=== PATIENT | female | born 1935 | race Caucasian/White ===

== ENCOUNTER 2016-11-27 08:00 | Outpatient (CLI) | payer MEDICARE | END 2016-11-27 08:01 | disposition home or self-care (01) | DX: B00.1 Herpesviral vesicular dermatitis (principal); I10 Essential (primary) hypertension; E78.5 Hyperlipidemia, unspecified ==

== ENCOUNTER 2017-07-29 08:00 | Outpatient (CLI) | payer MEDICARE ==
[2017-07-29 13:04] LABS: BASOPHILS # (AUTO) 0.1 10^3/uL (0.0-0.1); BASOPHILS % (AUTO) 1.2 %; EOSINOPHILS # (AUTO) 0.2 10^3/uL (0.0-0.7); EOSINOPHILS % (AUTO) 2.1 %; HGB - HEMOGLOBIN 10.2 g/dL (12.0-16.0); LYMPHOCYTES # (AUTO) 2.9 10^3/uL (1.5-3.5); LYMPHOCYTES % (AUTO) 33.9 %; MEAN CORPUSCULAR HEMOGLOBIN 31.1 pg (27.0-31.0); MEAN CORPUSCULAR HGB CONC 35.4 g/dL (32.0-36.0); MEAN PLATELET VOLUME 8.6 fL (7.9-10.8); MONOCYTES # (AUTO) 0.6 10^3/uL (0.0-1.0); MONOCYTES % (AUTO) 7.1 %; NEUTROPHILS # (AUTO) 4.7 10^3/uL (1.5-6.6); NEUTROPHILS % (AUTO) 55.7 %; PLT - PLATELET COUNT 312 10^3/uL (130-450); RED BLOOD COUNT 3.27 10^6/uL (4.20-5.40); RED CELL DISTRIBUTION WIDTH 14.2 % (12.0-15.0); WHITE BLOOD COUNT 8.5 x10^3/uL (4.8-10.8)
[2017-07-29 13:27] LABS: ALBUMIN 3.8 g/dL (3.2-5.5); ALBUMIN/GLOBULIN RATIO 1.2 (1.0-2.2); BILIRUBIN,TOTAL 0.3 mg/dL (0.2-1.0); CALCIUM 8.7 mg/dL (8.5-10.3); CREATININE 1.4 mg/dL (0.4-1.0); TOTAL PROTEIN 7.1 g/dL (6.7-8.2)
== END 2017-07-29 08:01 | disposition home or self-care (01) ==
LOC: LAB.WCP 08:00
PROVIDERS: ATTEND Family Medicine
DX: Z00.00 Encounter for general adult medical examination without abnormal findings (principal); I48.92 Unspecified atrial flutter; E78.5 Hyperlipidemia, unspecified; N18.3 Chronic kidney disease, stage 3 (moderate); I12.9 Hypertensive chronic kidney disease with stage 1 through stage 4 chronic kidney disease, or unspecified chronic kidney disease
CPT/HCPCS: 36415; 80053; 85025

== ENCOUNTER 2017-07-31 08:00 | Outpatient (CLI) | payer MEDICARE ==
[2017-07-31 19:14] LABS: % IRON SATURATION 15 % (20-50); IRON 48 ug/dL (28-170); TOTAL IRON BINDING CAPACITY 316 ug/dL (250-450); TRANSFERRIN 226 mg/dL (192-382)
[2017-07-31 19:24] LABS: FERRITIN 53.4 ng/mL (11.0-306.8)
== END 2017-07-31 08:01 | disposition home or self-care (01) ==
LOC: LAB.WCP 08:00
PROVIDERS: ATTEND Family Medicine
DX: D64.9 Anemia, unspecified (principal)
CPT/HCPCS: 36415; 82607; 82728; 83540; 84466

== ENCOUNTER 2018-02-12 08:00 | Outpatient (CLI) | payer MEDICARE ==
[2018-02-13 13:43] LABS: HEPATITIS A IGM NON-REACTIVE (NON-REACTIVE); HEPATITIS B CORE ANTIBODY IGM NON-REACTIVE (NON-REACTIVE); HEPATITIS B SURFACE ANTIGEN NON-REACTIVE (NON-REACTIVE); HEPATITIS C ANTIBODY NON-REACTIVE (NON-REACTIVE)
== END 2018-02-12 08:01 | disposition home or self-care (01) ==
LOC: LAB.WCP 08:00
PROVIDERS: ATTEND Family Medicine
DX: R94.5 Abnormal results of liver function studies (principal)
CPT/HCPCS: 36415; 80074

== ENCOUNTER 2018-03-17 14:39 | Outpatient (CLI) | payer MEDICARE ==
[2018-03-17 19:02] LABS: BASOPHILS # (AUTO) 0.1 10^3/uL (0.0-0.1); BASOPHILS % (AUTO) 0.9 %; EOSINOPHILS # (AUTO) 0.2 10^3/uL (0.0-0.7); EOSINOPHILS % (AUTO) 2.6 %; HGB - HEMOGLOBIN 11.1 g/dL (12.0-16.0); LYMPHOCYTES % (AUTO) 34.3 %; MEAN CORPUSCULAR HEMOGLOBIN 32.7 pg (27.0-31.0); MEAN CORPUSCULAR HGB CONC 34.2 g/dL (32.0-36.0); MEAN CORPUSCULAR VOLUME 95.6 fL (81.0-99.0); MEAN PLATELET VOLUME 9.2 fL (7.9-10.8); MONOCYTES # (AUTO) 0.5 10^3/uL (0.0-1.0); MONOCYTES % (AUTO) 6.1 %; NEUTROPHILS # (AUTO) 4.8 10^3/uL (1.5-6.6); NEUTROPHILS % (AUTO) 56.1 %; PLT - PLATELET COUNT 322 10^3/uL (130-450); RED BLOOD COUNT 3.39 10^6/uL (4.20-5.40); RED CELL DISTRIBUTION WIDTH 13.9 % (12.0-15.0); WHITE BLOOD COUNT 8.6 x10^3/uL (4.8-10.8)
[2018-03-17 19:39] LABS: ALBUMIN 4.2 g/dL (3.2-5.5); ALBUMIN/GLOBULIN RATIO 1.4 (1.0-2.2); BILIRUBIN,TOTAL 0.4 mg/dL (0.2-1.0); CREATININE 1.2 mg/dL (0.4-1.0); TOTAL PROTEIN 7.1 g/dL (6.7-8.2)
== END 2018-03-17 14:40 | disposition home or self-care (01) ==
LOC: LAB.WCP 14:39
PROVIDERS: ATTEND Internal Medicine Gastroenterology
DX: D50.9 Iron deficiency anemia, unspecified (principal)
CPT/HCPCS: 36415; 80053; 83540; 84466; 85025

== ENCOUNTER 2018-05-05 14:05 | Outpatient (CLI) | payer MEDICARE ==
[2018-05-05 18:52] LABS: INR 2.6 (0.8-1.2); PT - PROTHROMBIN TIME 29.6 secs (9.9-12.6)
== END 2018-05-05 14:06 | disposition home or self-care (01) ==
LOC: LAB.WCP 14:05
PROVIDERS: ATTEND Family Medicine
DX: I48.91 Unspecified atrial fibrillation (principal); Z79.01 Long term (current) use of anticoagulants
CPT/HCPCS: 36415; 85610

== ENCOUNTER 2018-06-04 11:58 | Outpatient (CLI) | payer MEDICARE ==
[2018-06-04 12:21] LABS: BASOPHILS # (AUTO) 0.2 10^3/uL (0.0-0.1); BASOPHILS % (AUTO) 1.9 %; EOSINOPHILS # (AUTO) 0.2 10^3/uL (0.0-0.7); EOSINOPHILS % (AUTO) 2.7 %; HGB - HEMOGLOBIN 11.6 g/dL (12.0-16.0); LYMPHOCYTES # (AUTO) 2.7 10^3/uL (1.5-3.5); LYMPHOCYTES % (AUTO) 33.3 %; MEAN CORPUSCULAR HEMOGLOBIN 31.6 pg (27.0-31.0); MEAN CORPUSCULAR HGB CONC 33.4 g/dL (32.0-36.0); MEAN CORPUSCULAR VOLUME 94.6 fL (81.0-99.0); MEAN PLATELET VOLUME 8.1 fL (7.9-10.8); MONOCYTES # (AUTO) 0.5 10^3/uL (0.0-1.0); MONOCYTES % (AUTO) 5.6 %; NEUTROPHILS # (AUTO) 4.6 10^3/uL (1.5-6.6); NEUTROPHILS % (AUTO) 56.5 %; PLT - PLATELET COUNT 371 10^3/uL (130-450); RED BLOOD COUNT 3.68 10^6/uL (4.20-5.40); RED CELL DISTRIBUTION WIDTH 14.5 % (12.0-15.0); WHITE BLOOD COUNT 8.1 x10^3/uL (4.8-10.8)
[2018-06-04 12:33] LABS: ALBUMIN 4.4 g/dL (3.2-5.5); ALBUMIN/GLOBULIN RATIO 1.3 (1.0-2.2); BILIRUBIN,TOTAL 0.6 mg/dL (0.2-1.0); CALCIUM 9.1 mg/dL (8.5-10.3); CREATININE 1.2 mg/dL (0.4-1.0); TOTAL PROTEIN 7.9 g/dL (6.7-8.2)
[2018-06-04] MEDS ORDERED: IOVERSOL 320 100 ML VIAL IVP ONE ×2 (13:06→16:06)
[2018-06-04] MEDS ORDERED: IOVERSOL 320 50 ML VIAL ONE (13:06)
--- NOTE | 2018-06-04 15:52 | CT Report ---
Reason: ANEMIA,IRON DEFICIENCY Procedure Date: 06/04/2018 Accession Number: [id number] / [id number] Procedure: CT - Abdomen/Pelvis W/ CPT Code: FULL RESULT: EXAM: CT ABDOMEN AND PELVIS EXAM DATE: 06/04/2018 02:36 PM. CLINICAL HISTORY: Anemia, iron deficiency. COMPARISONS: None. TECHNIQUE: Routine helical CT imaging was performed through the abdomen and pelvis. IV contrast: 80 mL Optiray 320. Enteric contrast: Yes. Reconstructions: Coronal and sagittal. In accordance with CT protocol optimization, one or more of the following dose reduction techniques were utilized for this exam: automated exposure control, adjustment of mA and/or KV based on patient size, or use of iterative reconstructive technique. FINDINGS: Lung Bases: Dependent changes. Liver: Sub-5 mm right hepatic lobe hypodensity too small to characterize. No suspicious masses. Gallbladder/Bile Ducts: Unremarkable. Spleen: Normal. Pancreas: Normal. Adrenal Glands: Normal. Kidneys: Hypodensities which are too small to characterize. No suspicious masses and no hydronephrosis. Peritoneal Cavity/Bowel: Diverticulosis and redundant sigmoid colon. No free fluid, free air or adenopathy. No masses or acute inflammatory process. Pelvic Organs: Normal. The bladder and visualized pelvic organs are within normal limits. Vasculature: Marked atherosclerotic disease without intrarenal aneurysm of the aorta. Bones: No aggressive osseous lesion. Other: None. IMPRESSION: No suspicious mass or lymphadenopathy is detected. RADIA
[2018-06-04] MEDS ORDERED: IOVERSOL 320 50 ML VIAL PO ONE (16:06)
== END 2018-06-04 11:59 | disposition home or self-care (01) ==
LOC: LAB 11:58 → DI 11:59
PROVIDERS: ATTEND Internal Medicine Gastroenterology
DX: D50.9 Iron deficiency anemia, unspecified (principal); R94.5 Abnormal results of liver function studies; N18.3 Chronic kidney disease, stage 3 (moderate)
CPT/HCPCS: 36415; 74177; 80053; 85025; Q9967

== ENCOUNTER 2018-09-21 08:07 | Outpatient (CLI) | payer MEDICARE ==
[2018-09-21 13:28] LABS: BASOPHILS # (AUTO) 0.1 10^3/uL (0.0-0.1); BASOPHILS % (AUTO) 0.8 %; EOSINOPHILS # (AUTO) 0.1 10^3/uL (0.0-0.7); EOSINOPHILS % (AUTO) 1.6 %; HGB - HEMOGLOBIN 11.5 g/dL (12.0-16.0); LYMPHOCYTES # (AUTO) 2.5 10^3/uL (1.5-3.5); LYMPHOCYTES % (AUTO) 30.1 %; MEAN CORPUSCULAR HEMOGLOBIN 32.2 pg (27.0-31.0); MEAN CORPUSCULAR HGB CONC 33.8 g/dL (32.0-36.0); MEAN CORPUSCULAR VOLUME 95.1 fL (81.0-99.0); MEAN PLATELET VOLUME 8.6 fL (7.9-10.8); MONOCYTES # (AUTO) 0.4 10^3/uL (0.0-1.0); NEUTROPHILS # (AUTO) 5.2 10^3/uL (1.5-6.6); NEUTROPHILS % (AUTO) 62.5 %; PLT - PLATELET COUNT 358 10^3/uL (130-450); RED BLOOD COUNT 3.56 10^6/uL (4.20-5.40); RED CELL DISTRIBUTION WIDTH 13.8 % (12.0-15.0); WHITE BLOOD COUNT 8.3 x10^3/uL (4.8-10.8)
[2018-09-21 15:41] LABS: ALBUMIN 4.2 g/dL (3.2-5.5); ALBUMIN/GLOBULIN RATIO 1.4 (1.0-2.2); ALKALINE PHOSPHATASE 92 IU/L (42-121); ALT ALANINE AMINOTRANSFERASE 29 IU/L (10-60); AST ASPARTATE AMINOTRANSFERASE 37 IU/L (10-42); BILIRUBIN,TOTAL 0.4 mg/dL (0.2-1.0); BUN - BLOOD UREA NITROGEN 20 mg/dL (6-20); CARBON DIOXIDE - CO2 24 mmol/L (21-32); CHLORIDE 106 mmol/L (101-111); CHOL/HDL RATIO 4.3 (<4.4); CHOLESTEROL 201 mg/dL; CREATININE 1.1 mg/dL (0.4-1.0); GFR - MDRD 47 (>89); GLUCOSE 99 mg/dL (70-100); HDL CHOLESTEROL 47 mg/dL; LDL CHOLESTEROL,CALCULATED 90 mg/dL; LDL/HDL RATIO 1.9 (<4.4); SODIUM 142 mmol/L (135-145); TOTAL PROTEIN 7.2 g/dL (6.7-8.2); VLDL CHOLESTEROL 64 mg/dL
== END 2018-09-21 08:08 | disposition home or self-care (01) ==
LOC: LAB.WCP 08:07
PROVIDERS: ATTEND Family Medicine
DX: B35.1 Tinea unguium (principal); D50.9 Iron deficiency anemia, unspecified; I12.9 Hypertensive chronic kidney disease with stage 1 through stage 4 chronic kidney disease, or unspecified chronic kidney disease; N18.3 Chronic kidney disease, stage 3 (moderate); I48.91 Unspecified atrial fibrillation; Z79.01 Long term (current) use of anticoagulants
CPT/HCPCS: 36415; 80053; 80061; 83721; 84443; 85025

== ENCOUNTER 2018-09-22 08:00 | Outpatient (CLI) | payer MEDICARE | END 2018-09-22 23:59 | disposition home or self-care (01) | LOC: LAB.WCP 08:00 | PROVIDERS: ATTEND Family Medicine | DX: I48.92 Unspecified atrial flutter (principal); Z79.01 Long term (current) use of anticoagulants ==

== ENCOUNTER 2018-10-07 13:21 | Outpatient (CLI) | payer MEDICARE | END 2018-10-07 13:22 | disposition home or self-care (01) | LOC: DI.N 13:21 | PROVIDERS: ATTEND Family Medicine | DX: Z12.31 Encounter for screening mammogram for malignant neoplasm of breast (principal) | CPT/HCPCS: 77067 ==

== ENCOUNTER 2018-10-20 08:00 | Outpatient (CLI) | payer MEDICARE | END 2018-10-20 23:59 | disposition home or self-care (01) | LOC: LAB.WCP 08:00 | PROVIDERS: ATTEND Family Medicine | DX: N18.3 Chronic kidney disease, stage 3 (moderate) (principal); I48.91 Unspecified atrial fibrillation; Z79.01 Long term (current) use of anticoagulants | CPT/HCPCS: 81025 ==

== ENCOUNTER 2018-11-17 08:00 | Outpatient (CLI) | payer MEDICARE | END 2018-11-17 23:59 | disposition home or self-care (01) | LOC: LAB.WCP 08:00 | PROVIDERS: ATTEND Family Medicine | DX: I48.92 Unspecified atrial flutter (principal); Z79.01 Long term (current) use of anticoagulants ==

== ENCOUNTER 2019-01-10 08:00 | Outpatient (CLI) | payer MEDICARE | END 2019-01-10 08:01 | disposition home or self-care (01) | LOC: LAB.WCP 08:00 | PROVIDERS: ATTEND Family Medicine | DX: I48.92 Unspecified atrial flutter (principal); Z79.01 Long term (current) use of anticoagulants ==

== ENCOUNTER 2019-02-07 08:00 | Outpatient (CLI) | payer MEDICARE | END 2019-02-07 23:59 | disposition home or self-care (01) | LOC: LAB.WCP 08:00 | PROVIDERS: ATTEND Physician Assistant Medical | DX: I48.91 Unspecified atrial fibrillation (principal); Z79.01 Long term (current) use of anticoagulants ==

== ENCOUNTER 2019-02-16 08:00 | Outpatient (CLI) | payer MEDICARE ==
[2019-02-16 18:44] LABS: CALCIUM 9.2 mg/dL (8.5-10.3); CREATININE 1.6 mg/dL (0.4-1.0)
== END 2019-02-16 23:59 | disposition home or self-care (01) ==
LOC: LAB.WCP 08:00
PROVIDERS: ATTEND Internal Medicine Cardiovascular Disease
DX: I10 Essential (primary) hypertension (principal)
CPT/HCPCS: 36415; 80048

== ENCOUNTER 2019-03-09 08:00 | Outpatient (CLI) | payer MEDICARE | END 2019-03-09 08:01 | disposition home or self-care (01) | LOC: LAB.WCP 08:00 | PROVIDERS: ATTEND Family Medicine | DX: I48.92 Unspecified atrial flutter (principal); Z79.01 Long term (current) use of anticoagulants ==

== ENCOUNTER 2019-03-31 13:09 | Outpatient (CLI) | payer MEDICARE ==
[2019-03-31 19:07] LABS: CALCIUM 9.2 mg/dL (8.5-10.3); CREATININE 1.6 mg/dL (0.4-1.0)
== END 2019-03-31 23:59 | disposition home or self-care (01) ==
LOC: LAB.WCP 13:09
PROVIDERS: ATTEND Family Medicine
DX: N18.3 Chronic kidney disease, stage 3 (moderate) (principal)
CPT/HCPCS: 36415; 80048

== ENCOUNTER 2019-04-05 08:00 | Outpatient (CLI) | payer MEDICARE | END 2019-04-05 23:59 | disposition home or self-care (01) | LOC: LAB.WCP 08:00 | PROVIDERS: ATTEND Family Medicine | DX: Z79.01 Long term (current) use of anticoagulants (principal); I48.92 Unspecified atrial flutter ==

== ENCOUNTER 2019-05-03 08:00 | Outpatient (CLI) | payer MEDICARE | END 2019-05-03 23:59 | disposition home or self-care (01) | LOC: LAB.WCP 08:00 | PROVIDERS: ATTEND Family Medicine | DX: Z79.01 Long term (current) use of anticoagulants (principal); I48.91 Unspecified atrial fibrillation ==

== ENCOUNTER 2019-05-31 08:00 | Outpatient (CLI) | payer MEDICARE | END 2019-05-31 23:59 | disposition home or self-care (01) | LOC: LAB.WCP 08:00 | PROVIDERS: ATTEND Family Medicine | DX: Z79.01 Long term (current) use of anticoagulants (principal); I48.92 Unspecified atrial flutter ==

== ENCOUNTER 2020-09-19 21:12 | Outpatient (CLI) | payer MEDICARE | END 2020-09-19 21:13 | disposition EMS.NT | LOC: EMS 21:12 | DX: Z48.01 Encounter for change or removal of surgical wound dressing (principal) ==

== ENCOUNTER 2021-03-26 06:43 | Outpatient (CLI) | payer MEDICARE ==
--- NOTE | 2021-03-26 08:28 | Ultrasound Report ---
PROCEDURE: Abdomen Limited INDICATIONS: ABNORMAL LFTS TECHNIQUE: Real-time scanning was performed of the abdominal and retroperitoneal organs, with image documentatio n. COMPARISON: CT abdomen and pelvis dated 06/04/2018. FINDINGS: Liver: The liver demonstrates diffusely increased echotexture without focal abnormalities which is c onsistent with chronic hepatocellular disease/hepatic steatosis. Gallbladder: Gallbladder is mildly contracted. No wall thickening. No pericholecystic fluid. No galls tones. Negative sonographic Crandall's. Biliary ducts: Intrahepatic bile ducts are non-dilated. Extrahepatic bile duct caliber measures 5 m m. Normal is 6-7 mm or less in diameter, or 10 mm or less post-cholecystectomy. Pancreas: There is a 0.9 x 0.9 x 0.7 cm pancreatic head cyst. This was not definitively seen on shireen rison CT. Remainder of the visualized portions of the pancreas are sonographically normal. Kidneys: Right kidney is normal in size and echotexture. Right kidney measures 7.6 cm long. No hydro nephrosis or nephrolithiasis. No solid masses. IMPRESSION: 1. Diffusely coarse/echogenic liver parenchyma without focal intrahepatic mass lesions likely related to hepatic steatosis or sequela of chronic hepatocellular disease. Findings may explain patient's ab normal LFTs. 2. A 0.9 cm pancreatic head cyst which is not visualized on comparison CT. Recommend further characte rization with dedicated CT or MRI of the abdomen using pancreatic mass protocol. Reviewed by: Zeus Tomas MD on 03/26/2021 8:27 AM PDT Approved by: Zeus Tomas MD on 03/26/2021 8:27 AM PDT Station ID: [id number]
== END 2021-03-26 06:44 | disposition home or self-care (01) ==
LOC: DI 06:43
PROVIDERS: ATTEND Internal Medicine
DX: R74.8 Abnormal levels of other serum enzymes (principal); R93.2 Abnormal findings on diagnostic imaging of liver and biliary tract; K86.2 Cyst of pancreas

== ENCOUNTER 2021-04-15 11:52 | Outpatient (CLI) | payer MEDICARE ==
[2021-04-15 12:40] LABS: CREATININE 1.6 mg/dL (0.4-1.0)
[2021-04-15] MEDS ORDERED: IOVERSOL 320 100 ML VIAL IVP ONE ×2 (13:13→20:04)
--- NOTE | 2021-04-15 17:14 | CT Report ---
PROCEDURE: ABDOMEN W/WO INDICATIONS: ABN US, pancreatic head cyst CONTRAST: IV CONTRAST: Optiray 320 ml: 70 PO CONTRAST: *NO PO CONTRAST TECHNIQUE: Noncontrast 5 mm thick sections acquired from the diaphragms to the symphysis. 5 mm coronal and sagi ttal reformats were then performed. For radiation dose reduction, the following was used: automated exposure control, adjustment of mA and/or kV according to patient size. COMPARISON: Correlation made to recent ultrasound 03/26/[address] abdomen pelvis 06/04/2018 FINDINGS: Image quality: Excellent. Lung bases: Gravitational changes present at both lung bases. The heart is mildly enlarged. Tiny hiat al hernia. Moderate mitral annular calcification. Moderate descending aortic calcification. Pancreas: Pancreas is normal in size and morphology. There is a cystic mass measuring 0.8 x 0.8 x 0. 7 cm in the pancreatic neck with a possible connection or at least close association to the nondilate d main pancreatic duct. There is slight internal attenuation but no definite enhancing component, nod ule, or calcification. There is no atrophy of the distal pancreas. No other cystic masses are identif ied. Solid organs: Subcentimeter hypodensity in posterior segment VII of the liver. Coarse calcification in segment VIII measuring 5 mm. No arterially enhancing mass lesion. Normal liver size and smooth con tour. Normal liver size and spleen size.. Gallbladder is normal. Biliary system is non dilated. No adrenal nodules.. Kidneys are normal in size and enhancement. No hydronephrosis or nephrolithiasis. Peritoneum and bowel: Unenhanced bowel loops are normal in caliber and wall thickness. Occasional si gmoid diverticulosis. No free fluid or air. Nodes and vessels: No retroperitoneal or mesenteric adenopathy by size criteria. Aorta and inferior vena cava are normal in size. Moderate abdominal aortic calcification. Miscellaneous: No ventral hernias. The uterus is surgically absent. The urinary bladder is partiall y filled and demonstrates normal wall thickness. No pelvic masses or adenopathy. Bones: No suspicious bony lesions. No vertebral body compression fractures. There are focal degenerative disc and endplate changes at the L1-2 level. IMPRESSION: 1. 0.8 cm cystic pancreatic neck mass with possible connection to the pancreatic duct. Differential d iagnosis includes a sidebranch IPMN, tiny benign cystic neoplasm, less likely pseudocyst and much les s likely malignant neoplasm. 6 month follow-up CT is recommended to assess for any size change or dev elopment of suspicious features. 2. Atherosclerotic calcification., Reviewed by: Shi Gupta MD on 04/15/2021 5:13 PM PDT Approved by: Shi Gupta MD on 04/15/2021 5:13 PM PDT Station ID: [id number]
== END 2021-04-15 11:53 | disposition home or self-care (01) ==
LOC: LAB 11:52 → DI 11:53
PROVIDERS: ATTEND Internal Medicine
DX: K86.9 Disease of pancreas, unspecified (principal); Z79.899 Other long term (current) drug therapy; I70.0 Atherosclerosis of aorta
CPT/HCPCS: 36415; 74170; 82565; Q9967

== ENCOUNTER 2021-10-05 09:48 | Outpatient (CLI) | payer MEDICARE ==
[2021-10-05] MEDS ORDERED: IOVERSOL 320 100 ML VIAL IVP ONE ×2 (10:03→10:53)
[2021-10-05 10:18] LABS: CREATININE 1.5 mg/dL (0.4-1.0)
--- NOTE | 2021-10-05 12:07 | CT Report ---
PROCEDURE: ABDOMEN W/WO INDICATIONS: MASS OF PANCREATIC NECK CONTRAST: IV CONTRAST: Optiray 320 ml: 100 PO CONTRAST: *NO PO CONTRAST TECHNIQUE: 4 phase scanning was performed. After the administration of intravenous contrast, 5 mm thick section s acquired from the diaphragm to the symphysis. 5 mm coronal and sagittal reformats were acquired. For radiation dose reduction, the following was used: automated exposure control, adjustment of mA a nd/or kV according to patient size. COMPARISON: 06/04/2018, 04/15/2021 FINDINGS: Image quality: Excellent. Lung bases: Minimal dependent atelectasis can be seen. Heart size is normal. Liver: The liver demonstrates normal size and demonstrates no focal lesions. Mild diffuse fatty live r infiltration can be seen. Other solid organs: Along the posterior neck of the pancreas, there is again seen a hypoechoic focus , as on series 3 image 37 measuring 8 mm. No new masses are seen. No pancreatic ductal dilatation is seen. Gallbladder demonstrates no significant CT abnormality Biliary system is non dilated. Spleen is nor mal in size and enhancement. No adrenal nodules. Both kidneys demonstrate normal size and enhanceme nt, without hydronephrosis or nephrolithiasis. Nodes and vessels: No retroperitoneal or mesenteric adenopathy by size criteria. Aorta and inferior vena cava are normal in size. Dense atherosclerotic calcification is seen. Bowel and peritoneum: Unenhanced bowel loops are normal in caliber. No free fluid or air. Bones: Mild levoconvex scoliotic curvature is seen. Focal degenerative change is seen involving the L2 level. Milder degenerative changes are seen elsewhere. No suspicious bony lesions. No vertebra l body compression fractures. Miscellaneous: No ventral hernias. IMPRESSION: 8 mm focus seen along the neck of the gallbladder, which is similar to the prior examina tion. This may be related to a sidebranch IPMN. Please consider a follow-up study in one year for further evaluation. Incidental note is made of: Fatty liver infiltration Levoconvex scoliotic curvature Focal L1-L2 degenerative change Dense atherosclerotic calcification Reviewed by: Roscoe Mcclain MD on 10/05/2021 11:05 AM BASILIO Approved by: Roscoe Mcclain MD on 10/05/2021 11:05 AM BASILIO Station ID: [id number]
== END 2021-10-05 09:49 | disposition home or self-care (01) ==
LOC: LAB 09:48
PROVIDERS: ATTEND Internal Medicine
DX: Z79.899 Other long term (current) drug therapy (principal); R93.2 Abnormal findings on diagnostic imaging of liver and biliary tract
CPT/HCPCS: 36415; 74170; 82565; Q9967

== ENCOUNTER 2021-10-25 15:35 | Outpatient (CLI) | payer MEDICARE | END 2021-10-25 15:36 | disposition home or self-care (01) | LOC: LAB.N 15:35 | PROVIDERS: ATTEND Internal Medicine | DX: Z79.01 Long term (current) use of anticoagulants (principal) | CPT/HCPCS: 36415; 85610 ==

== ENCOUNTER 2022-05-12 14:36 | Outpatient (CLI) | payer MEDICARE | END 2022-05-12 14:37 | disposition home or self-care (01) | LOC: LAB 14:36 | PROVIDERS: ATTEND Internal Medicine | DX: I48.91 Unspecified atrial fibrillation (principal) | CPT/HCPCS: 36416; 85610 ==

== ENCOUNTER 2022-07-15 10:28 | Outpatient (CLI) | payer MEDICARE ==
[2022-07-15 18:01] LABS: BASOPHILS # (AUTO) 0.1 10^3/uL (0.0-0.1); BASOPHILS % (AUTO) 1.3 %; EOSINOPHILS # (AUTO) 0.1 10^3/uL (0.0-0.7); EOSINOPHILS % (AUTO) 1.4 %; HCT - HEMATOCRIT 37.1 % (37.0-47.0); HGB - HEMOGLOBIN 11.9 g/dL (12.0-16.0); LYMPHOCYTES # (AUTO) 2.3 10^3/uL (1.5-3.5); MEAN CORPUSCULAR HGB CONC 32.1 g/dL (32.0-36.0); MEAN CORPUSCULAR VOLUME 99.7 fL (81.0-99.0); MEAN PLATELET VOLUME 11.3 fL (7.9-10.8); MONOCYTES # (AUTO) 0.4 10^3/uL (0.0-1.0); MONOCYTES % (AUTO) 4.4 %; NEUTROPHILS # (AUTO) 5.4 10^3/uL (1.5-6.6); NEUTROPHILS % (AUTO) 64.4 %; PLT - PLATELET COUNT 387 10^3/uL (130-450); RED BLOOD COUNT 3.72 10^6/uL (4.20-5.40); RED CELL DISTRIBUTION WIDTH 13.8 % (12.0-15.0); WHITE BLOOD COUNT 8.4 x10^3/uL (4.8-10.8)
[2022-07-15 18:16] LABS: ALBUMIN 4.3 g/dL (3.2-5.5); ALBUMIN/GLOBULIN RATIO 1.3 (1.0-2.2); ALKALINE PHOSPHATASE 86 IU/L (42-121); ALT ALANINE AMINOTRANSFERASE 30 IU/L (10-60); AST ASPARTATE AMINOTRANSFERASE 35 IU/L (10-42); BILIRUBIN,TOTAL 0.8 mg/dL (0.2-1.0); BUN - BLOOD UREA NITROGEN 24 mg/dL (6-20); CALCIUM 8.6 mg/dL (8.5-10.3); CARBON DIOXIDE - CO2 22 mmol/L (21-32); CHLORIDE 102 mmol/L (101-111); CHOL/HDL RATIO 3.4 (<4.4); CHOLESTEROL 202 mg/dL; CK- CREATINE KINASE 138 IU/L (22-269); CREATININE 1.6 mg/dL (0.4-1.0); GFR - MDRD 31 (>89); GLUCOSE 109 mg/dL (70-100); HDL CHOLESTEROL 59 mg/dL; LDL CHOLESTEROL,CALCULATED 108 mg/dL; LDL/HDL RATIO 1.8 (<4.4); SODIUM 137 mmol/L (135-145); TOTAL PROTEIN 7.5 g/dL (6.7-8.2); TRIGLYCERIDES 176 mg/dL; VLDL CHOLESTEROL 35 mg/dL
[2022-07-16 13:59] LABS: ESTIMATED AVERAGE GLUCOSE 128 mg/dL (70-100); HEMOGLOBIN A1c% 6.1 % (4.27-6.07)
== END 2022-07-15 10:29 | disposition home or self-care (01) ==
LOC: LAB.N 10:28
PROVIDERS: ATTEND Internal Medicine
DX: Z00.00 Encounter for general adult medical examination without abnormal findings (principal); I48.91 Unspecified atrial fibrillation; I12.9 Hypertensive chronic kidney disease with stage 1 through stage 4 chronic kidney disease, or unspecified chronic kidney disease; N18.9 Chronic kidney disease, unspecified; D63.1 Anemia in chronic kidney disease; E55.9 Vitamin D deficiency, unspecified; K86.9 Disease of pancreas, unspecified; R73.01 Impaired fasting glucose; R74.8 Abnormal levels of other serum enzymes; H91.90 Unspecified hearing loss, unspecified ear; E78.5 Hyperlipidemia, unspecified; C43.9 Malignant melanoma of skin, unspecified; Z79.899 Other long term (current) drug therapy
CPT/HCPCS: 36415; 80053; 80061; 82306; 82550; 83036; 83721; 84443; 85025; 85610

== ENCOUNTER 2022-08-25 14:49 | Outpatient (CLI) | payer MEDICARE | END 2022-08-25 14:50 | disposition home or self-care (01) | LOC: LAB.N 14:49 | PROVIDERS: ATTEND Internal Medicine | DX: I48.91 Unspecified atrial fibrillation (principal) | CPT/HCPCS: 36416; 85610 ==

== ENCOUNTER 2022-09-22 15:28 | Outpatient (CLI) | payer MEDICARE | END 2022-09-22 15:29 | disposition home or self-care (01) | LOC: LAB.N 15:28 | PROVIDERS: ATTEND Internal Medicine | DX: I48.91 Unspecified atrial fibrillation (principal) | CPT/HCPCS: 36416; 85610 ==

== ENCOUNTER 2022-10-27 15:19 | Outpatient (CLI) | payer MEDICARE | END 2022-10-27 15:20 | disposition home or self-care (01) | LOC: LAB.N 15:19 | PROVIDERS: ATTEND Internal Medicine | DX: Z53.9 Procedure and treatment not carried out, unspecified reason (principal) | CPT/HCPCS: 85610 ==

== ENCOUNTER 2022-10-31 14:50 | Outpatient (CLI) | payer MEDICARE ==
[2022-10-31 15:25] LABS: CREATININE 1.6 mg/dL (0.4-1.0)
[2022-10-31] MEDS ORDERED: iohexoL-300 100 ML VIAL IVP ONE (16:35)
--- NOTE | 2022-10-31 16:50 | CT Report ---
PROCEDURE: ABDOMEN W/WO INDICATIONS: MASS OF PANCREATIC NECK CONTRAST: 100 mL Omnipaque 300 TECHNIQUE: After the administration of intravenous contrast, 5 mm thick sections acquired from the diaphragm to the symphysis. 5 mm coronal and sagittal reformats were acquired. For radiation dose reduction, the following was used: automated exposure control, adjustment of mA and/or kV according to patient siz e. COMPARISON: CT 10/05/2021 FINDINGS: Image quality: Excellent. Pancreas: Stable 8 mm pancreatic cystic lesion in the pancreatic neck (series 4, image 29). No associ ated pancreatic ductal dilation or nodularity. OTHER Lung bases and heart: Increased size of the cystic lesion adjacent to the esophagus, measuring 2.1 cm , previously 1.8 cm (series 3, image 9). No enhancement or nodularity. Liver: Subcentimeter hypoattenuating lesion in segment 6/7, too small to characterize by CT but proba simone a benign cyst; this is unchanged from prior Gallbladder and biliary tree: Unremarkable. No biliary dilation. Spleen: Unremarkable. Adrenals: Unremarkable. Kidneys and ureters: Unremarkable. Bowel and peritoneum: No bowel distension. No pathologic free fluid. Lymph nodes: No central or retroperitoneal adenopathy. Vessels: Unremarkable. Bones: No aggressive osseous abnormality. Other: None. IMPRESSION: Stable pancreatic cystic lesion measuring 0.8 cm, without associated nodularity or ductal dilation. T here is connection to the pancreatic duct, consistent with a side branch IPMN. This has remained rela tively stable since 2018; no further follow-up is indicated per ACR consensus guidelines. Growing fluid collection adjacent to the distal esophagus. Differential includes an enteric duplicati on cyst or entrapped fluid within the esophageal hiatus. No suspicious nodularity. Reviewed by: Hugh Henley on 10/31/2022 4:49 PM PDT Approved by: Hugh Henley on 10/31/2022 4:49 PM PDT Station ID: [id number]
== END 2022-10-31 14:51 | disposition home or self-care (01) ==
LOC: LAB 14:50
PROVIDERS: ATTEND Internal Medicine
DX: K86.89 Other specified diseases of pancreas (principal); Z79.899 Other long term (current) drug therapy; I48.91 Unspecified atrial fibrillation
CPT/HCPCS: 36415; 36416; 82565; 85610

== ENCOUNTER 2022-12-17 13:55 | Outpatient (CLI) | payer MEDICARE | END 2022-12-17 13:56 | disposition home or self-care (01) | LOC: LAB.N 13:55 | PROVIDERS: ATTEND Internal Medicine | DX: I48.91 Unspecified atrial fibrillation (principal) | CPT/HCPCS: 36416; 85610 ==

== ENCOUNTER 2023-02-26 14:40 | Outpatient (CLI) | payer MEDICARE | END 2023-02-26 14:41 | disposition home or self-care (01) | LOC: LAB.N 14:40 | PROVIDERS: ATTEND Internal Medicine | DX: I48.91 Unspecified atrial fibrillation (principal) | CPT/HCPCS: 36416; 85610 ==

== ENCOUNTER 2023-03-06 14:54 | Outpatient (CLI) | payer MEDICARE | END 2023-03-06 14:55 | disposition home or self-care (01) | LOC: LAB.N 14:54 | PROVIDERS: ATTEND Internal Medicine | DX: I48.91 Unspecified atrial fibrillation (principal) | CPT/HCPCS: 36416; 85610 ==

== ENCOUNTER 2023-04-20 08:00 | Outpatient (CLI) | payer MEDICARE | END 2023-04-20 23:59 | disposition home or self-care (01) | LOC: LAB.N 08:00 | PROVIDERS: ATTEND Internal Medicine | DX: I48.91 Unspecified atrial fibrillation (principal) | CPT/HCPCS: 36416; 85610 ==

== ENCOUNTER 2023-05-04 15:30 | Outpatient (CLI) | payer MEDICARE | END 2023-05-04 15:31 | disposition home or self-care (01) | LOC: LAB.N 15:30 | PROVIDERS: ATTEND Internal Medicine | DX: I48.91 Unspecified atrial fibrillation (principal) | CPT/HCPCS: 36416; 85610 ==

== ENCOUNTER 2023-05-11 14:58 | Outpatient (CLI) | payer MEDICARE | END 2023-05-11 14:59 | disposition home or self-care (01) | LOC: LAB.N 14:58 | PROVIDERS: ATTEND Internal Medicine | DX: I48.91 Unspecified atrial fibrillation (principal) | CPT/HCPCS: 36416; 85610 ==

== ENCOUNTER 2023-05-27 15:27 | Outpatient (CLI) | payer MEDICARE | END 2023-05-27 15:28 | disposition home or self-care (01) | LOC: LAB.N 15:27 | PROVIDERS: ATTEND Internal Medicine | DX: I48.91 Unspecified atrial fibrillation (principal) | CPT/HCPCS: 36416; 85610 ==

== ENCOUNTER 2023-07-01 12:49 | Outpatient (CLI) | payer MEDICARE | END 2023-07-01 12:50 | disposition home or self-care (01) | LOC: LAB.N 12:49 | PROVIDERS: ATTEND Internal Medicine | DX: I48.91 Unspecified atrial fibrillation (principal) | CPT/HCPCS: 36416; 85610 ==

== ENCOUNTER 2023-07-27 15:12 | Outpatient (CLI) | payer MEDICARE | END 2023-07-27 15:13 | disposition home or self-care (01) | LOC: LAB.N 15:12 | PROVIDERS: ATTEND Internal Medicine | DX: I48.91 Unspecified atrial fibrillation (principal) | CPT/HCPCS: 36416; 85610 ==

== ENCOUNTER 2023-08-10 14:53 | Outpatient (CLI) | payer MEDICARE | END 2023-08-10 14:54 | disposition home or self-care (01) | LOC: LAB.N 14:53 | PROVIDERS: ATTEND Internal Medicine | DX: I48.91 Unspecified atrial fibrillation (principal) | CPT/HCPCS: 36416; 85610 ==

== ENCOUNTER 2023-09-08 15:03 | Outpatient (CLI) | payer MEDICARE | END 2023-09-08 15:04 | disposition home or self-care (01) | LOC: LAB.N 15:03 | PROVIDERS: ATTEND Internal Medicine | DX: I48.91 Unspecified atrial fibrillation (principal) | CPT/HCPCS: 36416; 85610 ==

== ENCOUNTER 2023-09-16 15:10 | Outpatient (CLI) | payer MEDICARE | END 2023-09-16 15:11 | LOC: LAB.N 15:10 | PROVIDERS: ATTEND Internal Medicine | DX: I48.91 Unspecified atrial fibrillation (principal) | CPT/HCPCS: 36416; 85610 ==

== ENCOUNTER 2023-10-22 14:17 | Outpatient (CLI) | payer MEDICARE | END 2023-10-22 14:18 | disposition home or self-care (01) | LOC: LAB.N 14:17 | PROVIDERS: ATTEND Internal Medicine | DX: I48.91 Unspecified atrial fibrillation (principal) | CPT/HCPCS: 36416; 85610 ==

== ENCOUNTER 2023-10-27 14:33 | Outpatient (CLI) | payer MEDICARE | END 2023-10-27 14:34 | disposition home or self-care (01) | LOC: LAB.N 14:33 | PROVIDERS: ATTEND Internal Medicine | DX: I48.91 Unspecified atrial fibrillation (principal) | CPT/HCPCS: 85610 ==

== ENCOUNTER 2023-11-05 10:33 | Outpatient (CLI) | payer MEDICARE | END 2023-11-05 10:34 | disposition home or self-care (01) | LOC: LAB.N 10:33 | PROVIDERS: ATTEND Internal Medicine | DX: I48.91 Unspecified atrial fibrillation (principal) | CPT/HCPCS: 36416; 85610 ==

== ENCOUNTER 2023-11-18 15:28 | Outpatient (CLI) | payer MEDICARE | END 2023-11-18 15:29 | disposition home or self-care (01) | LOC: LAB.N 15:28 | PROVIDERS: ATTEND Internal Medicine | DX: I48.91 Unspecified atrial fibrillation (principal) | CPT/HCPCS: 36416; 85610 ==

== ENCOUNTER 2023-11-27 13:51 | Outpatient (CLI) | payer MEDICARE | END 2023-11-27 13:52 | disposition home or self-care (01) | LOC: LAB.N 13:51 | PROVIDERS: ATTEND Internal Medicine | DX: I48.91 Unspecified atrial fibrillation (principal) | CPT/HCPCS: 36416; 85610 ==

== ENCOUNTER 2023-12-22 15:25 | Outpatient (CLI) | payer MEDICARE | END 2023-12-22 15:26 | disposition home or self-care (01) | LOC: LAB.N 15:25 | PROVIDERS: ATTEND Internal Medicine | DX: I48.91 Unspecified atrial fibrillation (principal) | CPT/HCPCS: 36416; 85610 ==

== ENCOUNTER 2024-01-02 12:45 | Inpatient (IN) | payer MEDICARE ==
[2024-01-02 13:32] LABS: BASOPHILS # (AUTO) 0.1 10^3/uL (0.0-0.1); BASOPHILS % (AUTO) 1.1 %; EOSINOPHILS % (AUTO) 0.3 %; HCT - HEMATOCRIT 33.4 % (37.0-47.0); HGB - HEMOGLOBIN 10.8 g/dL (12.0-16.0); LYMPHOCYTES # (AUTO) 1.8 10^3/uL (1.5-3.5); MEAN CORPUSCULAR HGB CONC 32.3 g/dL (32.0-36.0); MEAN CORPUSCULAR VOLUME 99.1 fL (81.0-99.0); MEAN PLATELET VOLUME 10.1 fL (7.9-10.8); MONOCYTES # (AUTO) 0.4 10^3/uL (0.0-1.0); MONOCYTES % (AUTO) 6.1 %; NEUTROPHILS # (AUTO) 4.8 10^3/uL (1.5-6.6); NEUTROPHILS % (AUTO) 67.4 %; PLT - PLATELET COUNT 308 10^3/uL (130-450); RED BLOOD COUNT 3.37 10^6/uL (4.20-5.40); RED CELL DISTRIBUTION WIDTH 13.3 % (12.0-15.0); WHITE BLOOD COUNT 7.2 x10^3/uL (4.8-10.8)
[2024-01-02 13:45] LABS: ALBUMIN/GLOBULIN RATIO 1.5 (1.0-2.2); BILIRUBIN,TOTAL 0.3 mg/dL (0.2-1.0); CALCIUM 8.7 mg/dL (8.5-10.3); CREATININE 2.7 mg/dL (0.6-1.3); POTASSIUM 4.4 mmol/L (3.5-4.5); TOTAL PROTEIN 6.6 g/dL (6.4-8.9)
[2024-01-02] MEDS: SODIUM CHLORIDE 0.9% 1,000 ML IV STA (16:53)
--- NOTE | 2024-01-02 16:55 | ED Physician Documentation ---
PD HPI NVD - Stated complaint Stated Complaint: N/V/D, WEAKNESS - Chief complaint Chief Complaint: Abd Pain - History obtained from History obtained from: Patient, Family - History of Present Illness Timing - onset: How many days ago (55) Timing - duration: Days Timing - details: Gradual onset, Still present Associated symptoms: Dizzy, Near syncope / syncope, Loss of appetite Contributing factors: No: Recent antibiotics, Alcohol use, Anticoagulated, Diabetes Improved by: Vomiting, BM Worsened by: Eating, Moving Similar symptoms before: Diagnosis (gastroenteritis) Recently seen: Not recently seen - Additonal information Additional information: Kelly Branch is an 88-year-old female with a prior history of renal insufficiency and atrial fibrillation on Coumadin. She has developed nausea vomiting and diarrhea beginning about 5 days ago. She has become significantly dehydrated. Today she has profound weakness. She has come to the emergency department for evaluation and treatment. She denies recent antibiotic use she has had diarrhea previously a number of times not usually accompanied by nausea and vomiting. Her daughter indicates that she does have some slowness that is not typical for her. Review of Systems Constitutional: reports: Fever (day 2 of illness) Eyes: denies: Decreased vision Ears: denies: Ear pain Nose: denies: Rhinorrhea / runny nose, Congestion Throat: denies: Sore throat Cardiac: denies: Chest pain / pressure, Palpitations Respiratory: denies: Dyspnea, Cough GI: reports: Abdominal Pain, Nausea, Vomiting, Diarrhea : denies: Dysuria, Frequency Skin: denies: Rash Musculoskeletal: denies: Neck pain, Back pain, Extremity pain Neurologic: reports: Generalized weakness. denies: Focal weakness, Numbness, Difficulty speaking, Headache, Head injury, LOC PD PAST MEDICAL HISTORY - Past Medical History Past Medical History: Yes Cardiovascular: Hypertension, High cholesterol, Atrial fibrillation - Past Surgical History Past Surgical History: No - Present Medications Home Medications: Ambulatory Orders Medication Instructions Recorded Confirmed Atorvastatin [Lipitor] 10 mg PO DAILY 01/02/24 01/02/24 Losartan [Cozaar] 50 mg PO DAILY 01/02/24 01/02/24 Warfarin [Coumadin] 2.5 mg PO DAILY 01/02/24 01/02/24 dilTIAZem HCL [Diltiazem 24Hr ER] 360 mg PO DAILY 01/02/24 01/02/24 terbinafine HCL [Terbinafine HCl] 250 mg PO DAILY 01/02/24 01/02/24 - Allergies Allergies/Adverse Reactions: Allergies Allergy/AdvReac Type Severity Reaction Status Date / Time No Known Drug Allergies Allergy Verified 01/02/24 13:01 - Social History Does the pt smoke?: No Smoking Status: Never smoker Does the pt drink ETOH?: No Does the pt have substance abuse?: No - Immunizations Immunizations are current?: Yes PD ED PE NORMAL - Vitals Vital signs reviewed: Yes (hypotensive with wide pulse pressure. ) - General General: Alert and oriented X 3, No acute distress (pale appearing female with delay in execution of motor commands and speech latency of 1-2 seconds. ), Well developed/nourished, Other - HEENT HEENT: Atraumatic, PERRL, EOMI, Other (dry mucous membranes ) - Neck Neck: Supple, no meningeal sign, No bony TTP - Cardiac Cardiac: RRR, No murmur - Respiratory Respiratory: No respiratory distress - Abdomen Abdomen: Normal bowel sounds, Soft, Non tender, Non distended, No organomegaly - Derm Derm: Normal color, Warm and dry, No rash - Extremities Extremities: No deformity, No edema - Neuro Neuro: Alert and oriented X 3, material attendant 2-12 intact, No motor deficit, No sensory deficit, Normal speech (There is speech latency of about 1-2 seconds) Eye Opening: Spontaneous Motor: Obeys Commands Verbal: Oriented GCS Score: 15 - Psych Psych: Normal mood, Normal affect Results - Vitals Vitals: Vital Signs - 24 hr 01/02/24 01/02/24 13:01 17:02 Temperature 36.5 C Heart Rate 85 85 Respiratory 18 18 Rate Blood Pressure 109/54 L 118/59 L O2 Saturation 100 95 Oxygen O2 Source Room air - Labs Labs: Laboratory Tests 01/02/24 01/02/24 01/02/24 13:28 13:28 13:28 WBC 7.2 RBC 3.37 L Hgb 10.8 L Hct 33.4 L MCV 99.1 H MCH 32.0 H MCHC 32.3 RDW 13.3 Plt Count 308 MPV 10.1 Neut # (Auto) 4.8 Lymph # (Auto) 1.8 [place] # (Auto) 0.4 Eos # (Auto) 0.0 Baso # (Auto) 0.1 Absolute Nucleated RBC 0.00 Nucleated RBC % 0.0 PT 27.1 H INR 2.6 H APTT 38.3 H Sodium 134 L Potassium 4.4 Chloride 105 Carbon Dioxide 18 L Anion Gap 11.0 BUN 63 H Creatinine 2.7 H Estimated GFR (MDRD) 17 L Glucose 91 Calcium 8.7 Total Bilirubin 0.3 AST 53 H ALT 16 Alkaline Phosphatase 53 Total Protein 6.6 Albumin 4.0 Globulin 2.6 Albumin/Globulin Ratio 1.5 Lipase 62 Procedures - IVC sono (time) 1645 Bedside IVC sono: IVC measures (cm) (0.67), Profound dehydration (est 3 liter deficit) PD Medical Decision Making - ED course Complexity details: reviewed old records, reviewed results, re-evaluated patient, considered differential, d/w patient Reviewed Lab Results: We have reviewed a complete blood count showing a normal white blood cell count a depressed hemoglobin and hematocrit at 10.8 and 33.4 and these values are similar to the patient's prior values over the past several years. Her PT is 27.1 INR is 2.6 consistent with the Coumadin the patient is taken the chemistries show serum sodium low at 134 BUN is elevated at 63 and this is abnormal for the patient she usually runs in the 20-30 range. She has a history of renal insufficiency creatinine usually runs 1.6 today it is 2.7. I found these laboratories to be consistent with the level of dehydration the patient has experienced from a diarrheal illness lasting 5 days. She is not low on her potassium. ED course: 88-year-old Kelly Branch presents to the Emergency Department with 5 days of diarrhea and vomiting. She has become profoundly dehydrated and arrives to the emergency department with an inferior vena cava with a diameter of less than 7 mm. She has critical dehydration. She is administered IV saline she has evidence of acute kidney injury. Admission to the hospital is indicated for continued hydration and treatment of diarrheal illness lasting longer than [address] Aparicio is consulted in the case and comes directly to the ED to admit the patient. Departure - Departure Disposition: ED Place in Observation Clinical Impression: Gastroenteritis, Acute kidney injury, Dehydration Forms: PCP List
[2024-01-02 17:23] LABS: PARTIAL THROMBOPLASTIN TIME 38.3 secs (24.9-33.3)
[2024-01-02 17:27] LABS: INR 2.6 (0.8-1.2); PT - PROTHROMBIN TIME 27.1 secs (9.9-12.6)
[2024-01-02] MEDS ORDERED: ACETAMINOPHEN 325 MG TABLET PO PRN (18:47)
[2024-01-02] MEDS ORDERED: ONDANSETRON 4 MG/2 ML VIAL IVP PRN (18:47)
[2024-01-02] MEDS ORDERED: oxyCODONE 5 MG TABLET PO PRN (18:47)
--- NOTE | 2024-01-02 18:56 | HISTORY & PHYSICAL EXAMINATION ---
Chief Complaint - Chief Complaint Chief Complaint: N/V/D x 5d History of Present Illness - Admitted From Admitted From:: ED - History Obtained From Records Reviewed: previous labs History obtained from: patient Exam Limitations: Patient is [place], use loud voice - History of Present Illness HPI Comment/Other: 88-year-old female with a 5-day history of "food poisoning". About 5 days ago she wanted to take some Tylenol and therefore had a snack eating some leftover food. She states within the hour she started vomiting and has been having nausea and vomiting and diarrhea ever since that time. She has tolerated small bits of food since that time she has been able to tolerate clears most of the time. She has been having several loose stools a day and is gotten to the point where her stools are just greenish-yellowish water. She denies any foul- smelling stools she denies any blood in her stool or her vomit she has not had any black stools. She states there is not a particularly foul smell to her stool. In speaking with her [id number] it seems that she has had recurrent illnesses of this sort that have been ongoing. She has not had any antibiotics in the last several months. She has not had any urinary tract infections. She has not been running any fevers. She does complain of some lower abdominal bloating this week. Brief discussion of CODE STATUS with patient shows that she desires DNR stat us. Her son, Wilder Branch is her surrogate decision maker. History - Past Medical History Cardiovascular: reports: Hypertension, High cholesterol, Atrial fibrillation Respiratory: reports: None Neuro: reports: None Endocrine/Autoimmune: reports: None GI: denies: C.difficile, Chronic diarrhea, Chronic constipation, Diverticulitis, Cholelithiasis GAS SYSTEM OPERATOR: reports: None : reports: None HEENT: reports: None Psych: reports: None Musculoskeletal: reports: None Derm: reports: Other ( Malignant melanoma, stage III about 12 years ago status post axillary lymph node dissection and chemotherapy) - Past Surgical History General: reports: Appendectomy Ortho: denies: Hip replacement, Knee replacement Derm: reports: Skin cancer surgery - Family & Social History Family History: Mother: (mom age 58, unk cause), Father: , Cancer (age 58, stomach cancer) Living arrangement: At home Living Situation: Alone Social History Notes: since 1980. Lives alone. Grew up in [facility]. Meds/Allgy - Home Medications Home Medications: Ambulatory Orders Medication Instructions Recorded Confirmed Atorvastatin [Lipitor] 10 mg PO DAILY 01/02/24 01/02/24 Losartan [Cozaar] 50 mg PO DAILY 01/02/24 01/02/24 Warfarin [Coumadin] 2.5 mg PO DAILY 01/02/24 01/02/24 dilTIAZem HCL [Diltiazem 24Hr ER] 360 mg PO DAILY 01/02/24 01/02/24 terbinafine HCL [Terbinafine HCl] 250 mg PO DAILY 01/02/24 01/02/24 - Allergies Allergies/Adverse Reactions: Allergies Allergy/AdvReac Type Severity Reaction Status Date / Time No Known Drug Allergies Allergy Verified 01/02/24 13:01 Review of Systems - Constitutional Constitutional: reports: Fatigue, Malaise, Poor appetite - Eyes Eyes: denies: Spots in vision - Ears, Nose & Throat Ears, Nose & Throat: reports: Hearing loss (chronic). denies: Ear pain, Tinn itus - Cardiovascular Cariovascular: denies: Irregular heart rate, Palpitations, Chest pain - Respiratory Respiratory: denies: Cough - Gastrointestinal Gastrointestinal: reports: Diarrhea, Nausea, Vomiting, Bloating, Poor appetite. denies: Rectal bleeding, Black stools, Bloody stools - Genitourinary Genitourinary: denies: Dysuria, Frequency, Urgency - Musculoskeletal Musculoskeletal: reports: Joint pain (left hip, ongoing). denies: Muscle pain - Integumentary Integumentary: denies: Rash - Neurological Neurological: denies: General weakness, Focal weakness, Dizziness - Psychiatric Psychiatric: denies: Depression - Endocrine Endocrine: denies: Polyuria, Polydypsia - Hematologic/Lymphatic Hematologic/Lymphatic: denies: Anemia, Bruising, Petechiae - All Other Systems All Other Systems: reports: Reviewed and negative Prior Level of Functionality: independent. Drives. Does her own grocery shopping. Makes it to medical appointments Exam - Vital Signs Vital Signs: Vital Signs x48h Temp Pulse Resp BP Pulse Ox 01/02/24 17:02 85 18 118/59 L 95 01/02/24 13:01 36.5 C 85 18 109/54 L 100 - Physical Exam General Appearance: positive: No acute distress Eyes Bilateral: positive: Normal inspection ENT: positive: ENT inspection nml Neck: positive: Nml inspection Respiratory: positive: Chest non-tender, No respiratory distress, Breath sounds nml Cardiovascular: positive: Tachycardia (rate 110's, NSR on monitor) Peripheral Pulses: positive: 2+ Abdomen: positive: Non-tender, Nml bowel sounds, Other (mild distension, not tympanic) Back: positive: Nml inspection Skin: positive: Color nml Extremities: positive: Non-tender Neurologic/Psychiatric: positive: Oriented x3 Conclusion/Plan - Problem List (1) Acute kidney injury Conclusion/Plan: baseline creatinine looks to be between 1.5 and 1.6. Today her creatinine is 2.7. This is likely secondary to her gastroenteritis. Will provide supportive care for gastroenteritis and IV fluid overnight. Patient does not have any history of CHF she is not on any diuretic medications. She is not on any nephrotoxic medications. (2) Dehydration Conclusion/Plan: Nausea vomiting diarrhea for 5 days. Will provide supportive care. Patient can get loperamide for loose stools. Zofran for nausea and vomiting. Supportive IV fluids. I have placed her on a full liquid diet. (3) Gastroenteritis Conclusion/Plan: As above. stool studies have been ordered by emergency department physician. Will collect these if she is able to provide a sample. (4) Hypertension Conclusion/Plan: She takes losartan 50 mg a day at home. Her blood pressures have been in the 120s 130s in the emergency department will hold losartan for now. (5) Atrial fibrillation Conclusion/Plan: She diltiazem ER 360 mg daily at home. She is in normal sinus rhythm here. She has not taken hold her diltiazem yet today. Will prescribe short acting 30 mg every 6 hours hold for systolic blood pressure less than 120 here. Her INR is 2.6 on admission today. She takes 2.5 mg of Coumadin daily with the exception of Sundays she takes 5 mg. Will continue her warfarin and check her INR daily. She is not having any bleeding in her stools. she is not having any bruising she has not had any blood in her vomit - Lab Results Fish Bones: 01/02/24 13:28 01/02/24 13:28 Core Measures - Anticipated LOS I expect patient to be DC'd or transferred within 96 hours.: Yes - Issues Hospital Issues and Management Plan: briefly discussed CODE STATUS. She did not desires DNR. She does not have a POLST at this time - DVT/VTE - Prophylaxis VTE/DVT Device ordered at admit?: Yes VTE/DVT Prophylaxis med ordered at admit?: Yes
[2024-01-02] MEDS: diltiaZEM 30 MG TABLET PO SCH (19:42)
[2024-01-02] MEDS: SODIUM CHLORIDE 0.9% 1,000 ML IV SCH (19:43)
[2024-01-02] MEDS: SODIUM CHLORIDE FLUSH 0.9% 10 ML SYRINGE IVP PRN (19:43)
[2024-01-02] MEDS: WARFARIN 5 MG TABLET PO STA (20:11)
[2024-01-02] MEDS: FAMOTIDINE 20 MG/2 ML VIAL IVP SCH (20:12)
[2024-01-02] MEDS: SODIUM CHLORIDE FLUSH 0.9% 10 ML SYRINGE IVP SCH (20:13)
[2024-01-02 21:16] LABS: BILIRUBIN,URINE NEGATIVE (NEGATIVE); GLUCOSE, URINE (UA) NEGATIVE (NEGATIVE); KETONES,URINE (UA) TRACE mg/dL (NEGATIVE); LEUKOCYTE ESTERASE, URINE NEGATIVE (NEGATIVE); NITRITE,URINE NEGATIVE (NEGATIVE); OCCULT BLOOD,URINE TRACE-INTA (NEGATIVE); PH,URINE 5.5 PH (5.0-7.5); PROTEIN,URINE NEGATIVE (NEGATIVE); UROBILINOGEN,URINE 0.2 (NORMAL) E.U./dL (NORMAL)
[2024-01-02 21:18] LABS: CLARITY,URINE CLEAR (CLEAR)
[2024-01-03 05:29] LABS: BASOPHILS # (AUTO) 0.1 10^3/uL (0.0-0.1); BASOPHILS % (AUTO) 1.1 %; EOSINOPHILS # (AUTO) 0.1 10^3/uL (0.0-0.7); EOSINOPHILS % (AUTO) 0.8 %; HCT - HEMATOCRIT 30.5 % (37.0-47.0); HGB - HEMOGLOBIN 9.6 g/dL (12.0-16.0); LYMPHOCYTES # (AUTO) 1.3 10^3/uL (1.5-3.5); LYMPHOCYTES % (AUTO) 20.8 %; MEAN CORPUSCULAR HEMOGLOBIN 31.3 pg (27.0-31.0); MEAN CORPUSCULAR HGB CONC 31.5 g/dL (32.0-36.0); MEAN CORPUSCULAR VOLUME 99.3 fL (81.0-99.0); MEAN PLATELET VOLUME 10.5 fL (7.9-10.8); MONOCYTES # (AUTO) 0.5 10^3/uL (0.0-1.0); MONOCYTES % (AUTO) 7.7 %; NEUTROPHILS # (AUTO) 4.4 10^3/uL (1.5-6.6); NEUTROPHILS % (AUTO) 69.4 %; PLT - PLATELET COUNT 282 10^3/uL (130-450); RED BLOOD COUNT 3.07 10^6/uL (4.20-5.40); RED CELL DISTRIBUTION WIDTH 13.4 % (12.0-15.0); WHITE BLOOD COUNT 6.4 x10^3/uL (4.8-10.8)
[2024-01-03 05:31] LABS: INR 3.8 (0.8-1.2); PT - PROTHROMBIN TIME 37.9 secs (9.9-12.6)
[2024-01-03 05:42] LABS: POTASSIUM 3.8 mmol/L (3.5-4.5)
--- NOTE | 2024-01-03 11:55 | PHARMACY PROGRESS NOTE ---
- Best Possible Medication History Admit Date and Time: 01/02/24 7000 Processed by: Pharmacy Medications reviewed in ED?: Yes Medication History completed: Yes Patient Interview: Completed (by pharmacy sales representativeTroy) Secondary Source(s): Physician records, Insurance records As the person ultimately responsible for medication therapy, providers are able to order a medication from an existing home medication list in [facility] via the "Reconcile Routine" prior to Confirmation of that medication by technical support specialist. Such practice is discouraged except when the physician, in their clinical judgment, deems that a medical need exists for a medication without regard to previous use.
[2024-01-03] MEDS: LOPERAMIDE 2 MG CAPSULE PO PRN (14:03)
[2024-01-03] MEDS ORDERED: ZINC OXIDE 20% OINT 30 GM TUBE TOP PRN (14:41)
--- NOTE | 2024-01-03 15:50 | PROVIDER PROGRESS NOTE ---
Assessment/Plan - Problem List (1) Acute kidney injury Assessment/Plan: Baseline creatinine is 1.5. Creatinine on admission was 2.7 and is decreased to 2.0 overnight. Plan: Continue normal saline at 100 mL/hour. Continue to follow BUN/creatinine and electrolytes. (2) Dehydration Conclusion/Plan: Patient reports nausea and vomiting for 5 days. Continue supportive care with IV fluids. Patient to receive loperamide as needed for loose stool. Zofran as needed for vomiting. (3) Gastroenteritis Conclusion/Plan: Etiology not clear but may be secondary to a viral infection or possibly related to food ingestion. (4) Hypertension Conclusion/Plan: Increase diltiazem 60 mg every 6 hours. (5) Atrial fibrillation Conclusion/Plan: Increase diltiazem to 60 mg every 6 hours. Withhold Coumadin because INR has increased to 3.8. - Current Meds Current Meds: Current Medications Generic Name Dose Route Start Last Admin Trade Name Freq PRN Reason Stop Dose Admin Diltiazem HCl 30 mg 01/02/24 19:00 01/03/24 12:58 Diltiazem 30 Mg Tablet PO 30 mg Q6HR RODY Administration Sodium Chloride 1,000 mls @ 100 mls/hr 01/02/24 19:00 01/03/24 14:49 Normal Saline 0.9% IV 100 mls/hr .Q10H RODY Administration Loperamide HCl 2 mg 01/02/24 18:51 01/03/24 14:03 Loperamide 2 Mg Capsule PO 01/03/24 18:50 2 mg ONCE PRN Administration Diarrhea Sodium Chloride 10 ml 01/02/24 18:47 01/02/24 19:43 Sodium Chloride Flush 0.9% 10 Ml Syringe IVP 10 ml PRN PRN Administration NEEDED PER PROVIDER ORDERS Sodium Chloride 10 ml 01/03/24 01:00 01/03/24 09:09 Sodium Chloride Flush 0.9% 10 Ml Syringe IVP 10 ml 0100,0900,1700 RODY Administration - Lab Result Fish Bone Diagrams: 01/03/24 04:45 01/03/24 04:45 - Additional Planning My Orders: My Active Orders 01/03/24 14:41 Zinc Oxide 20% Oint [Zinc Oxide] 1 applic TOP PRN PRN Subjective - Subjective Patient Reports: Other (Alert. Continues to complain of weakness and dizziness. Patient reports she is not steady on her feet. She denies chest pain and shortness of breath. She has no other complaints at this time.) Objective Vital Signs: Vital Signs - 24 hr 01/02/24 01/02/24 01/02/24 17:02 19:00 19:39 Temperature 36.1 C L Heart Rate 85 92 Heart Rate [ Brachial] Heart Rate [ 60 Monitoring electrodes] Respiratory 18 18 18 Rate Blood Pressure 118/59 L 125/73 Blood Pressure 135/78 H [Left Radial artery] O2 Saturation 95 97 98 01/02/24 01/02/24 01/03/24 19:42 23:35 00:35 Temperature 36.2 C L Heart Rate Heart Rate [ Brachial] Heart Rate [ 88 Monitoring electrodes] Respiratory 18 Rate Blood Pressure 135/78 H 122/64 Blood Pressure 122/64 [Left Radial artery] O2 Saturation 95 01/03/24 01/03/24 01/03/24 05:28 05:34 09:00 Temperature 36.2 C L 36.3 C L Heart Rate Heart Rate [ 99 Brachial] Heart Rate [ 99 Monitoring electrodes] Respiratory 18 18 Rate Blood Pressure 143/64 H Blood Pressure 143/64 H 116/59 L [Left Radial artery] O2 Saturation 99 97 01/03/24 01/03/24 01/03/24 12:53 12:58 15:46 Temperature 36.4 C L 36.4 C L Heart Rate Heart Rate [ 111 H 99 Brachial] Heart Rate [ Monitoring electrodes] Respiratory 18 18 Rate Blood Pressure 119/65 Blood Pressure 119/65 119/52 L [Left Radial artery] O2 Saturation 95 99 Oxygen O2 Source Room air I&O (Last 24 Hrs): Intake and Output Totals x24h 01/01/24 01/02/24 01/03/24 23:59 23:59 23:59 Intake Total 1100 2270.000 Output Total 200 Balance 1100 2070.000 General: Alert, Oriented x3, No acute distress HEENT: Atraumatic Neck: No JVD Lymphatic: no adenopathy Neuro: Alert, Non Focal Cardiovascular: Other (Positive S1-S2 no extra heart sounds.) Respiratory: Other (Good air exchange in all lung hackett no wheezing or crackles.) Abdomen: Other (Soft nontender nondistended positive bowel sounds.) Extremities: No cyanosis, No edema Skin: No rashes - Results Results: Laboratory Results WBC 6.4 x10^3/uL (4.8-10.8) 01/03/24 04:45 RBC 3.07 10^6/uL (4.20-5.40) L 01/03/24 04:45 Hgb 9.6 g/dL (12.0-16.0) L 01/03/24 04:45 Hct 30.5 % (37.0-47.0) L 01/03/24 04:45 MCV 99.3 fL (81.0-99.0) H 01/03/24 04:45 MCH 31.3 pg (27.0-31.0) H 01/03/24 04:45 MCHC 31.5 g/dL (32.0-36.0) L 01/03/24 04:45 RDW 13.4 % (12.0-15.0) 01/03/24 04:45 Plt Count 282 10^3/uL (130-450) 01/03/24 04:45 MPV 10.5 fL (7.9-10.8) 01/03/24 04:45 Neut # (Auto) 4.4 10^3/uL (1.5-6.6) 01/03/24 04:45 Lymph # (Auto) 1.3 10^3/uL (1.5-3.5) L 01/03/24 04:45 Yancey # (Auto) 0.5 10^3/uL (0.0-1.0) 01/03/24 04:45 Eos # (Auto) 0.1 10^3/uL (0.0-0.7) 01/03/24 04:45 Baso # (Auto) 0.1 10^3/uL (0.0-0.1) 01/03/24 04:45 Absolute Nucleated RBC 0.00 x10^3/uL 01/03/24 04:45 Nucleated RBC % 0.0 /100WBC 01/03/24 04:45 PT 37.9 secs (9.9-12.6) H 01/03/24 04:45 INR 3.8 (0.8-1.2) H 01/03/24 04:45 APTT 38.3 secs (24.9-33.3) H 01/02/24 13:28 Sodium 139 mmol/L (135-145) 01/03/24 04:45 Potassium 3.8 mmol/L (3.5-4.5) 01/03/24 04:45 Chloride 115 mmol/L (101-111) H 01/03/24 04:45 Carbon Dioxide 17 mmol/L (21-32) L 01/03/24 04:45 Anion Gap 7.0 (6-13) 01/03/24 04:45 BUN 48 mg/dL (6-20) H 01/03/24 04:45 Creatinine 2.0 mg/dL (0.6-1.3) H 01/03/24 04:45 Estimated GFR (MDRD) 24 (>89) L 01/03/24 04:45 Glucose 78 mg/dL (74-104) 01/03/24 04:45 Calcium 7.0 mg/dL (8.5-10.3) L 01/03/24 04:45 Total Bilirubin 0.3 mg/dL (0.2-1.0) 01/02/24 13:28 AST 53 IU/L (10-42) H 01/02/24 13:28 ALT 16 IU/L (10-60) 01/02/24 13:28 Alkaline Phosphatase 53 IU/L (42-121) 01/02/24 13:28 Total Protein 6.6 g/dL (6.4-8.9) 01/02/24 13:28 Albumin 4.0 g/dL (3.2-5.5) 01/02/24 13:28 Globulin 2.6 g/dL (2.1-4.2) 01/02/24 13:28 Albumin/Globulin Ratio 1.5 (1.0-2.2) 01/02/24 13:28 Lipase 62 U/L (11-82) 01/02/24 13:28 Urine Color YELLOW 01/02/24 19:33 Urine Clarity CLEAR (CLEAR) 01/02/24 19:33 Urine pH 5.5 PH (5.0-7.5) 01/02/24 19:33 Ur Specific [place] 1.015 (1.002-1.030) 01/02/24 19:33 Urine Protein NEGATIVE mg/dL (NEGATIVE) 01/02/24 19:33 Urine Glucose (UA) NEGATIVE mg/dL (NEGATIVE) 01/02/24 19:33 Urine Ketones TRACE mg/dL (NEGATIVE) 01/02/24 19:33 Urine Occult Blood TRACE-INTA (NEGATIVE) 01/02/24 19:33 Urine Nitrite NEGATIVE (NEGATIVE) 01/02/24 19:33 Urine Bilirubin NEGATIVE (NEGATIVE) 01/02/24 19:33 Urine Urobilinogen 0.2 (NORMAL) E.U./dL (NORMAL) 01/02/24 19:33 Ur Leukocyte Esterase NEGATIVE (NEGATIVE) 01/02/24 19:33 Ur Microscopic Review NOT INDICATED 01/02/24 19:33 Urine Culture Comments NOT INDICATED 01/02/24 19:33
[2024-01-03 19:01] LABS: CALCIUM, IONIZED 0.96 mmol/L (1.15-1.33); VBG PH 7.298 (7.31-7.41)
[2024-01-03] MEDS: CALCIUM GLUC 1,000MG/50ML-NACL 1,000 MG/50 ML BAG IV ONE (19:38)
[2024-01-03] MEDS: diltiaZEM 30 MG TABLET PO SCH (23:39)
[2024-01-04 05:56] LABS: PT - PROTHROMBIN TIME 46.6 secs (9.9-12.6)
[2024-01-04 06:04] LABS: CALCIUM 7.5 mg/dL (8.5-10.3); CREATININE 1.5 mg/dL (0.6-1.3); POTASSIUM 3.4 mmol/L (3.5-4.5)
[2024-01-04 06:18] LABS: INR 4.8 (0.8-1.2)
[2024-01-04] MEDS: PHYTONADIONE 10 MG/ML AMP PO ONE (08:54)
[2024-01-04] MEDS: CHERRY SYRUP 10 ML UDC PO ONE (08:54)
[2024-01-04] MEDS: FAMOTIDINE 20 MG/2 ML VIAL IVP SCH (08:55)
[2024-01-04] MEDS: POTASSIUM CHLOR 10 MEQ/100 ML 10 MEQ/100 ML BAG IV SCH (08:55)
--- NOTE | 2024-01-04 09:02 | PROVIDER PROGRESS NOTE ---
Subjective - Prog Note Date Prog Note Date: 01/04/24 Prog Note Time: 08:58 - Subjective Pt reports feeling: Improved Subjective: Feeling better, wants to get home as soon as she can. Aware of elevated INR this AM, and worried about that. not very hungry this AM, but willing to try to advance her diet this afternoon. Current Medications - Current Medications Current Medications: Medications Acetaminophen (Acetaminophen 325 Mg Tablet) 650 mg PO Q4HR PRN PRN Reason: Pain 1 to 4, or Fever Diltiazem HCl (Diltiazem 30 Mg Tablet) 60 mg PO Q6HR [facility] Last Admin: 01/04/24 04:43 Dose: 60 mg Famotidine (Famotidine 20 Mg/2 Ml Vial) 20 mg IVP DAILY [facility] Last Admin: 01/04/24 08:55 Dose: 20 mg Potassium Chloride (Potassium Chloride) 10 meq in 100 mls @ 100 mls/hr IV Q1H [facility] Stop: 01/04/24 09:59 Last Admin: 01/04/24 08:55 Dose: 100 mls/hr Discontinued Medications Phytonadione (Phytonadione 10 Mg/Ml Amp) 5 mg PO ONCE ONE Stop: 01/04/24 06:49 Last Admin: 01/04/24 08:54 Dose: 5 mg Objective - Vital Signs/Intake & Output Vital Signs: Vital Signs x48h Temp Pulse Resp BP BP Pulse Ox 01/04/24 04:48 37.0 C 73 20 134/68 H 97 01/04/24 04:43 134/68 H 01/04/24 01:56 36.6 C 102 H 18 126/73 98 Intake & Output: Intake & Output 01/01/24 01/02/24 01/03/24 01/04/24 23:59 23:59 23:59 23:59 Intake Total 1100 3823.333 Output Total 200 Balance 1100 3623.333 - Objective General Appearance: positive: No acute distress Eyes Bilateral: positive: Normal inspection ENT: positive: ENT inspection nml Neck: positive: Nml inspection Respiratory: positive: Chest non-tender, Breath sounds nml Cardiovascular: positive: Regular rate & rhythm Abdomen: positive: Non-tender (soft) Skin: positive: Color nml Extremities: positive: Non-tender Neurologic/Psychiatric: positive: Oriented x3 - Lab Results Fish Bones: 01/03/24 04:45 01/04/24 05:28 Other Labs: Lab Results x24hrs 01/04/24 01/04/24 01/03/24 Range/Units 05:28 05:28 18:52 PT 46.6 H (9.9-12.6) secs INR 4.8 H* (0.8-1.2) VBG pH 7.298 L (7.31-7.41) Ionized Calcium 0.96 L (1.15-1.33) mmol/L Sodium 138 (135-145) mmol/L Potassium 3.4 L (3.5-4.5) mmol/L Chloride 117 H (101-111) mmol/L Carbon Dioxide 15 L (21-32) mmol/L Anion Gap 6.0 (6-13) BUN 30 H (6-20) mg/dL Creatinine 1.5 H (0.6-1.3) mg/dL Estimated GFR (MDRD) 33 L (>89) Glucose 108 H (74-104) mg/dL Calcium 7.5 L (8.5-10.3) mg/dL Assessment/Plan - Problem List (1) Acute kidney injury Impression: resolved. Cr 1.5 today. This was due to dehydration and hypovolemia. (2) Hypokalemia due to excessive gastrointestinal loss of potassium Impression: Likely delutional as fluid status has improved. Will advance diet to regular from full liquids, and replete today with 10mEq KCl. . (3) Dehydration Impression: as a result of gastroenteritis of unclear cause. resolved. (4) Gastroenteritis Impression: She has decreased appetite but is tolerating a full liquid diet. Will advance diet today (5) Hypertension Impression: mildly hypertensive here 134/68, 141/69. heart rate has been controlled on diltiazem. I will not add back her losartan today (6) Atrial fibrillation Impression: I reviewed telemetry strips. She has been in atrial fibrillation, rate controlled on Diltiazem. elevated INR today. Will hold warfarin. Her INR has been labile in the outpatient environment. Vitamin K 5mg was given this AM. I am repeating INR at 1600 today. (7) Hyperlipidemia Impression: resume home statin
--- NOTE | 2024-01-04 12:05 | ADVANCE CARE PLANNING NOTE ---
Advance Care Planning - Planning Encounter Date: 01/04/24 Time: 12:03 Purpose: determine desires for care going forward Parties in Attendance: Candice Ulrich PA-C, [place] (patient). YOLI Starks comes in at end of discussion Decisional Capacity of the Patient: alert, oriented and aware. has insight into her social and medical situation - Encounter Subjective/Patient's Story: Kelly has been living alone in a condo in [place] since 2002. She is very happy in her home and she is independent in all her activities of daily living. She has been on warfarin for a number of years and actually finds that going out and getting her blood drawn keeps her moving and active. Her son Wilder and [id number] Tereza live [place] of [place]. The original plan was that they would also live here on [facility] but unfortunately life circumstances have conspired against this plan. They come up often. Kelly is very aware of personal safety. She keeps her phone charged and close by at all times. She even puts it on the floor of the bathroom when she takes a shower. She enjoys sewing and she attends taoist virtually every week. She feels that she has a lot of quality of life She is retired from her job as a legal arbitrator for many many years. She also did some caregiving for her ex [id number] for a period of years and then went to work in a alf as well as part of her [place] [facility] she was in her 70s when she finally stopped working. Through the think she is seen in a alf she knows that she does not want to be dependent on others for her care. Objective/Medical Story: Kelly has done well but unfortunately was admitted for gastroenteritis that resulted in acute kidney injury. She is now tolerating a diet but her INR is elevated. We anticipate discharging her home tomorrow back to her independent lifestyle. She does not have any pain in her abdomen but this intermittent nausea and vomiting makes her wonder if she has a gallbladder problem. I think she would be a candidate for almost any medical intervention as she is so well at this stage Of her life. Goals of Care: To live an active independent life Plan: POLST filled out today for DNR with selective treatment. This is in line with patient's goals of care. Was discussed briefly at the bedside with patient's [id number] Tereza who comes to visit during this discussion. Code Status: Do Not Attempt Resuscitation Time spent on advance care plannin
[2024-01-04 13:24] LABS: CALCIUM 7.6 mg/dL (8.5-10.3); CREATININE 1.5 mg/dL (0.6-1.3); POTASSIUM 4.3 mmol/L (3.5-4.5)
[2024-01-04 16:04] LABS: INR 4.4 (0.8-1.2); PT - PROTHROMBIN TIME 44.1 secs (9.9-12.6)
[2024-01-04] MEDS: ATORVASTATIN 10 MG TABLET PO SCH (21:31)
[2024-01-05 05:45] LABS: BASOPHILS # (AUTO) 0.1 10^3/uL (0.0-0.1); BASOPHILS % (AUTO) 1.1 %; EOSINOPHILS % (AUTO) 0.4 %; HCT - HEMATOCRIT 30.2 % (37.0-47.0); HGB - HEMOGLOBIN 9.6 g/dL (12.0-16.0); LYMPHOCYTES # (AUTO) 1.3 10^3/uL (1.5-3.5); LYMPHOCYTES % (AUTO) 28.2 %; MEAN CORPUSCULAR HEMOGLOBIN 31.5 pg (27.0-31.0); MEAN CORPUSCULAR HGB CONC 31.8 g/dL (32.0-36.0); MEAN PLATELET VOLUME 9.8 fL (7.9-10.8); MONOCYTES # (AUTO) 0.4 10^3/uL (0.0-1.0); MONOCYTES % (AUTO) 8.9 %; NEUTROPHILS # (AUTO) 2.7 10^3/uL (1.5-6.6); PLT - PLATELET COUNT 273 10^3/uL (130-450); RED BLOOD COUNT 3.05 10^6/uL (4.20-5.40); RED CELL DISTRIBUTION WIDTH 13.6 % (12.0-15.0); WHITE BLOOD COUNT 4.5 x10^3/uL (4.8-10.8)
[2024-01-05 05:52] LABS: INR 2.4 (0.8-1.2); PT - PROTHROMBIN TIME 24.9 secs (9.9-12.6)
[2024-01-05 05:58] LABS: CALCIUM 7.5 mg/dL (8.5-10.3); CREATININE 1.5 mg/dL (0.6-1.3)
[2024-01-05] MEDS ORDERED: DIATRIZOATE MEGLU/DIATRIZO SOD 30 ML BOTTLE PO ONE (08:36)
[2024-01-05] MEDS: diltiaZEM CD 120 MG CAPSULE PO SCH (08:52)
[2024-01-05] MEDS: SCOPOLAMINE PATCH TOP SCH (08:52)
[2024-01-05] MEDS: diltiaZEM CD 240 MG CAPSULE PO SCH (08:52)
[2024-01-05] MEDS: METOPROLOL TARTRATE 25 MG TABLET PO SCH (08:52)
--- NOTE | 2024-01-05 12:00 | CT Report ---
PROCEDURE: Abdomen/Pelvis WO INDICATIONS: rectal bleeding, nausea TECHNIQUE: A CT scan of the abdomen and pelvis was performed without the use of intravenous contrast. Images we re recorded and evaluated at appropriate window settings. Reformats: coronal and sagittal. For radiat ion dose reduction, the following was used: automated exposure control, adjustment of mA and/or kV ac cording to patient size. COMPARISON: 11/10/2022 CT of the abdomen with and without contrast. FINDINGS: Image quality: Diagnostic. Lower chest: Mild bilateral pleural effusions with associated bibasilar compressive atelectasis. Liver: No contour-deforming mass. Gallbladder: No radiopaque stones or wall thickening. Biliary tree: No intrahepatic or extrahepatic dilation, accounting for age. Spleen: No splenomegaly. Pancreas: No pancreatic ductal dilation. Adrenals: No adrenal nodule. Kidneys and ureters: No hydronephrosis. No contour-deforming mass. Stomach, bowel and peritoneum: There is asymmetric thickening of the wall of the distal rectum near t he anus. The right side of the distal rectum extending to the posterior aspect of the distal rectum i s asymmetrically thickened. Reference image 103 of series 2. There is perirectal inflammatory change in the subjacent fat at the level of the distal rectum. There is a moderate amount of fecal debris pr esent in the rectum. Incidental note is made of presence of a mobile cecum, present in the right uppe r quadrant. There is a small amount of pelvic ascites. There is inflammatory thickening involving mul tiple loops of jejunum. The ileum is relatively normal in caliber. Question peristalsis versus focal constricting lesion involving the ascending colon. Reference axial image 39. Lymph nodes: No central or retroperitoneal adenopathy. Vessels: No infrarenal aortic aneurysm. Reproductive organs: Uterus is surgically absent. Bladder: Bladder wall thickness is normal, accounting for underdistention. No calcified bladder stone s. Pelvic lymph nodes: No adenopathy by size criteria. Bones: No aggressive osseous abnormality. Severe lumbar degenerative change. Other: No significant ventral or inguinal hernia. IMPRESSION: 1. Bilateral mild pleural effusions and bibasilar atelectasis. 2. Thickening of multiple loops of jejunum consistent with jejunitis. Consider inflammatory versus in fectious versus ischemic etiologies. 3. Asymmetric thickening of the right lateral and posterior wall of the distal rectum, of uncertain e tiology, with inflammatory change in the distal perirectal fat. 4. Mobile cecum. 5. Question peristalsis versus constricting lesion in the ascending colon. 6. Mild ascites. Comment: Recommend direct visualization of the distal rectum and ascending colon utilizing colonoscop y when the patient is able to tolerate this study. Reviewed by: Nicholas Jerry MD on 01/05/2024 11:58 AM PDT Approved by: Nicholas Jerry MD on 01/05/2024 11:58 AM PDT Station ID: [id number]
--- NOTE | 2024-01-05 13:51 | Ultrasound Report ---
PROCEDURE: Abdomen Limited INDICATIONS: RUQ US, light stools, GI upset TECHNIQUE: Real-time focused scanning was performed of the abdomen, with image documentation. COMPARISONS: CT abdomen 10/31/2022. FINDINGS: Liver: Measures 14.7 cm. Heterogeneous echotexture. Calcification in the liver. Gallbladder: Gallbladder is nondistended. No stones or sludge. No gallbladder wall thickening. No per icholecystic fluid. Negative sonographic Crandall sign. Biliary ducts: Intrahepatic bile ducts are non-dilated. Extrahepatic bile duct caliber measures 4 m m. Normal is 6-7 mm or less in diameter, or 10 mm or less post-cholecystectomy. Pancreas: Visualized portions of the pancreas are sonographically normal. Cyst in the head of the pancreas measuring 0.8 x 0.7 x 0.4 cm. Right kidney: Normal in size and echotexture. Right kidney measures 8 cm long. No hydronephrosis or nephrolithiasis. No solid masses. No complex renal cystic lesions which require follow-up. IVC: Intrahepatic inferior vena cava is patent. Miscellaneous: No free abdominal fluid. IMPRESSION: 1. Cyst in the head of pancreas measuring 0.8 cm. Similar to prior CT. 2. Heterogeneous appearance of the liver. This could be due to hepatic steatosis or hepatocellular di sease. 3. No gallstones. Reviewed by: Tramaine Henry MD on 01/05/2024 1:49 PM PDT Approved by: Tramaine Henry MD on 01/05/2024 1:49 PM PDT Station ID: [id number]
[2024-01-05] MEDS: WARFARIN 2.5 MG TABLET PO SCH (14:38)
[2024-01-05] MEDS: DIATRIZOATE MEGLU/DIATRIZO SOD 30 ML BOTTLE PO ONE (15:47)
--- NOTE | 2024-01-05 16:08 | PROVIDER PROGRESS NOTE ---
Subjective - Prog Note Date Prog Note Date: 01/05/24 Prog Note Time: 09:20 - Subjective Pt reports feeling: Improved Subjective: she is feeling overall better this morning. Her [id number] is at the bedside. She had some rectal bleeding overnight and is slightly concerned about this. Right upper quadrant ultrasound was completed yesterday afternoon. She continues with some abdominal bloating. Current Medications - Current Medications Current Medications: Medications Atorvastatin Calcium (Atorvastatin 10 Mg Tablet) 10 mg PO QPM [facility] Last Admin: 01/04/24 21:31 Dose: 10 mg Diltiazem HCl (Diltiazem Cd 120 Mg Capsule) 120 mg PO DAILY [facility] Last Admin: 01/05/24 08:52 Dose: 120 mg Diltiazem HCl (Diltiazem Cd 240 Mg Capsule) 240 mg PO DAILY [facility] Last Admin: 01/05/24 08:52 Dose: 240 mg Famotidine (Famotidine 20 Mg/2 Ml Vial) 20 mg IVP DAILY [facility] Last Admin: 01/05/24 08:52 Dose: 20 mg Metoprolol Tartrate (Metoprolol Tartrate 25 Mg Tablet) 25 mg PO BID [facility] Last Admin: 01/05/24 08:52 Dose: 25 mg Multi-Ingredient Ointment (Zinc Oxide 20% Oint 30 Gm Tube) 1 applic TOP PRN PRN PRN Reason: Skin Care Oxycodone HCl (Oxycodone 5 Mg Tablet) 2.5 mg PO Q4HR PRN PRN Reason: Pain 5 to 7 Scopolamine HBr (Scopolamine Patch) 1 patch TOP Q3D [facility] Last Admin: 01/05/24 08:52 Dose: 1 patch Warfarin Sodium (Warfarin 2.5 Mg Tablet) 2.5 mg PO QDWARFARIN [facility] Last Admin: 01/05/24 14:38 Dose: 2.5 mg Acetaminophen (Acetaminophen 325 Mg Tablet) 650 mg PO Q4HR PRN PRN Reason: Pain 1 to 4, or Fever Diltiazem HCl (Diltiazem 30 Mg Tablet) 60 mg PO Q6HR [facility] Last Admin: 01/04/24 04:43 Dose: 60 mg Famotidine (Famotidine 20 Mg/2 Ml Vial) 20 mg IVP DAILY [facility] Last Admin: 01/04/24 08:55 Dose: 20 mg Ondansetron HCl (Ondansetron 4 Mg/2 Ml Vial) 4 mg IVP Q6HR PRN PRN Reason: Nausea / Vomiting Discontinued Medications Phytonadione (Phytonadione 10 Mg/Ml Amp) 5 mg PO ONCE ONE Stop: 01/04/24 06:49 Last Admin: 01/04/24 08:54 Dose: 5 mg Potassium Chloride (Potassium Chloride) 10 meq in 100 mls @ 100 mls/hr IV Q1H RODY Stop: 01/04/24 09:59 Last Admin: 01/04/24 09:00 Dose: 75 mls/hr Objective - Vital Signs/Intake & Output Vital Signs: Vital Signs x48h Temp Pulse Resp BP BP Pulse Ox 01/05/24 11:10 36.4 C L 82 18 114/53 L 93 01/05/24 08:52 122/69 Intake & Output: Intake & Output 01/02/24 01/03/24 01/04/24 01/05/24 23:59 23:59 23:59 23:59 Intake Total 1100 3823.333 1916.000 712 Output Total 200 Balance 1100 3623.333 1916.000 712 - Objective General Appearance: positive: No acute distress, Alert Eyes Bilateral: positive: Normal inspection ENT: positive: ENT inspection nml Neck: positive: Nml inspection Respiratory: positive: No respiratory distress, Breath sounds nml Cardiovascular: positive: Regular rate & rhythm Abdomen: positive: Non-tender Rectal: positive: Hemorrhoid (multiple external hemorrhoids without active bleed ing. there is scant bleeding when wipes with moist cloth.) Back: positive: Nml inspection Skin: positive: Color nml Extremities: positive: Non-tender, No pedal edema Neurologic/Psychiatric: positive: Oriented x3, Other (gait steady with walker) - Lab Results Fish Bones: 01/05/24 05:30 01/05/24 05:30 Other Labs: Lab Results x24hrs 01/05/24 01/05/24 01/05/24 Range/Units 05:30 05:30 05:30 WBC 4.5 L (4.8-10.8) x10^3/uL RBC 3.05 L (4.20-5.40) 10^6/uL Hgb 9.6 L (12.0-16.0) g/dL Hct 30.2 L (37.0-47.0) % MCV 99.0 (81.0-99.0) fL MCH 31.5 H (27.0-31.0) pg MCHC 31.8 L (32.0-36.0) g/dL RDW 13.6 (12.0-15.0) % Plt Count 273 (130-450) 10^3/uL MPV 9.8 (7.9-10.8) fL Neut # (Auto) 2.7 (1.5-6.6) 10^3/uL Lymph # (Auto) 1.3 L (1.5-3.5) 10^3/uL [place] # (Auto) 0.4 (0.0-1.0) 10^3/uL Eos # (Auto) 0.0 (0.0-0.7) 10^3/uL Baso # (Auto) 0.1 (0.0-0.1) 10^3/uL Absolute Nucleated RBC 0.00 x10^3/uL Nucleated RBC % 0.0 /100WBC PT 24.9 H (9.9-12.6) secs INR 2.4 H (0.8-1.2) Sodium 136 (135-145) mmol/L Potassium 4.0 (3.5-4.5) mmol/L Chloride 114 H (101-111) mmol/L Carbon Dioxide 17 L (21-32) mmol/L Anion Gap 5.0 L (6-13) BUN 22 H (6-20) mg/dL Creatinine 1.5 H (0.6-1.3) mg/dL Estimated GFR (MDRD) 33 L (>89) Glucose 94 (74-104) mg/dL Calcium 7.5 L (8.5-10.3) mg/dL /02/19 Range/Units 15:54 WBC (4.8-10.8) x10^3/uL RBC (4.20-5.40) 10^6/uL Hgb (12.0-16.0) g/dL Hct (37.0-47.0) % MCV (81.0-99.0) fL MCH (27.0-31.0) pg MCHC (32.0-36.0) g/dL RDW (12.0-15.0) % Plt Count (130-450) 10^3/uL MPV (7.9-10.8) fL Neut # (Auto) (1.5-6.6) 10^3/uL Lymph # (Auto) (1.5-3.5) 10^3/uL [place] # (Auto) (0.0-1.0) 10^3/uL Eos # (Auto) (0.0-0.7) 10^3/uL Baso # (Auto) (0.0-0.1) 10^3/uL Absolute Nucleated RBC x10^3/uL Nucleated RBC % /100WBC PT 44.1 H (9.9-12.6) secs INR 4.4 H (0.8-1.2) Sodium (135-145) mmol/L Potassium (3.5-4.5) mmol/L Chloride (101-111) mmol/L Carbon Dioxide (21-32) mmol/L Anion Gap (6-13) BUN (6-20) mg/dL Creatinine (0.6-1.3) mg/dL Estimated GFR (MDRD) (>89) Glucose (74-104) mg/dL Calcium (8.5-10.3) mg/dL - Diagnostic Imaging Diagnostic Imaging Results: positive: Final report reviewed Diagnostic Imaging Comments: RUQUS not remarkable. pancreatic cyst not changed compared to October 2022 CT A/P: (po contrast only): jejunitis. focal thickening of the right side of the distal rectum. Assessment/Plan - Problem List (1) Enteritis Impression: jejunal inflammation seen on CT. Stool cultures collected on hospital day 2. negative: final result. appropriate to treat with antibiotics, discussed with pharmacy- best to treat with Augmentin given patient age, coumadin therapy vs Cipro/Flagyl. (2) Acute kidney injury Impression: Resolved. creatinine 1.5 today (3) Hypokalemia due to excessive gastrointestinal loss of potassium Impression: resolved, 4.0 today. recheck in AM. (4) Dehydration Impression: resolved. eating and drinking well. urinating regularly. secondary to GI upset. (5) Gastroenteritis Impression: now better defined as jejunal inflammation. See discussion above. (6) Hypertension Impression: normotensive. home dose of diltiazem restarted. she has been slightly tachycardic, a fib with RVR. see below. (7) Atrial fibrillation Impression: reviewed telemetry strips. She has been in atrial fibrillation, rate has increased and had readings around 120 indicating RVR INR 2.4 today. she was given Vit K yesterday. Her INR has been labile in the outpatient environment. repeat INR in AM, will keep a close watch on this given that we are starting augmentin for enteritis. (8) Hyperlipidemia Impression: home statin restarted.
[2024-01-05] MEDS: AMOX/CLAV 500 MG/125 MG TABLET PO SCH (20:46)
[2024-01-05] MEDS ORDERED: CIPROFLOXACIN 250 MG TABLET PO SCH (21:00)
[2024-01-06 05:57] LABS: BASOPHILS % (AUTO) 0.7 %; EOSINOPHILS # (AUTO) 0.1 10^3/uL (0.0-0.7); EOSINOPHILS % (AUTO) 0.9 %; HCT - HEMATOCRIT 27.1 % (37.0-47.0); HGB - HEMOGLOBIN 8.6 g/dL (12.0-16.0); LYMPHOCYTES # (AUTO) 1.8 10^3/uL (1.5-3.5); LYMPHOCYTES % (AUTO) 31.3 %; MEAN CORPUSCULAR HEMOGLOBIN 31.2 pg (27.0-31.0); MEAN CORPUSCULAR HGB CONC 31.7 g/dL (32.0-36.0); MEAN CORPUSCULAR VOLUME 98.2 fL (81.0-99.0); MEAN PLATELET VOLUME 10.6 fL (7.9-10.8); MONOCYTES # (AUTO) 0.6 10^3/uL (0.0-1.0); MONOCYTES % (AUTO) 10.3 %; NEUTROPHILS # (AUTO) 3.3 10^3/uL (1.5-6.6); NEUTROPHILS % (AUTO) 56.1 %; PLT - PLATELET COUNT 259 10^3/uL (130-450); RED BLOOD COUNT 2.76 10^6/uL (4.20-5.40); RED CELL DISTRIBUTION WIDTH 14.2 % (12.0-15.0); WHITE BLOOD COUNT 5.8 x10^3/uL (4.8-10.8)
[2024-01-06 06:18] LABS: CALCIUM 7.4 mg/dL (8.5-10.3); POTASSIUM 4.4 mmol/L (3.5-4.5)
[2024-01-06 06:24] LABS: INR 1.9 (0.8-1.2)
[2024-01-06] MEDS: PANTOPRAZOLE 40 MG VIAL IVP SCH (06:28)
[2024-01-06] MEDS: LACTATED RINGERS 1,000 ML IV SCH (08:58)
--- NOTE | 2024-01-06 09:01 | PROVIDER PROGRESS NOTE ---
<ClaritaNhazbbhayley - Last Filed: 01/06/24 11:37> Subjective - Prog Note Date Prog Note Date: 01/06/24 Prog Note Time: 09:00 - Subjective Subjective: She is doing well today but looks a little pale on presentation. She complains of mild diffused abdominal pain. She has BRBPR due to hemorrhoids. She has not had a bowel movement overnight. She denies any n/v, CP, SOB. Current Medications - Current Medications Current Medications: Medications Famotidine (Famotidine 20 Mg/2 Ml Vial) 20 mg IVP DAILY [facility] Last Admin: 01/06/24 08:52 Dose: 20 mg Lactated Ringer's (Lr) 1,000 mls @ 100 mls/hr IV .Q10H [facility] Last Admin: 01/06/24 08:58 Dose: 100 mls/hr Warfarin Sodium (Warfarin 2.5 Mg Tablet) 2.5 mg PO QDWARFARIN [facility] Last Admin: 01/05/24 14:38 Dose: 2.5 mg Amoxicillin/Clavulanate Potassium (Amox/Clav 500 Mg/125 Mg Tablet) 1 tab PO BID [facility] Last Admin: 01/06/24 08:48 Dose: 1 tab Atorvastatin Calcium (Atorvastatin 10 Mg Tablet) 10 mg PO QPM [facility] Last Admin: 01/05/24 20:46 Dose: 10 mg Diltiazem HCl (Diltiazem Cd 120 Mg Capsule) 120 mg PO DAILY [facility] Last Admin: 01/06/24 08:52 Dose: 120 mg Ferrous Sulfate (Ferrous Sulfate 325 Mg Tablet) 325 mg PO DAILYWM [facility] Last Admin: 01/06/24 09:03 Dose: 325 mg Metoprolol Tartrate (Metoprolol Tartrate 25 Mg Tablet) 25 mg PO BID [facility] Last Admin: 01/06/24 08:51 Dose: Not Given Ondansetron HCl (Ondansetron 4 Mg/2 Ml Vial) 4 mg IVP Q6HR PRN PRN Reason: Nausea / Vomiting Oxycodone HCl (Oxycodone 5 Mg Tablet) 2.5 mg PO Q4HR PRN PRN Reason: Pain 5 to 7 Objective - Vital Signs/Intake & Output Vital Signs: Vital Signs x48h Temp Pulse Resp BP BP Pulse Ox 01/06/24 08:51 101/57 L 01/06/24 07:30 36.4 C L 69 18 104/56 L 95 Intake & Output: Intake & Output 01/03/24 01/04/24 01/05/24 01/06/24 23:59 23:59 23:59 23:59 Intake Total 3823.333 2243.729 6603 472 Output Total 200 Balance 3623.333 8630.261 6143 472 - Objective General Appearance: positive: No acute distress Eyes Bilateral: positive: Other (Pale conjunctivae) Respiratory: positive: No respiratory distress, Breath sounds nml Cardiovascular: positive: Regular rate & rhythm Abdomen: positive: Tenderness (Mild diffuse tenderness) Rectal: positive: Hemorrhoid Skin: positive: Pallor Neurologic/Psychiatric: positive: Mood/affect nml - Lab Results Fish Bones: 01/06/24 05:25 01/06/24 05:25 Other Labs: Lab Results x24hrs 01/06/24 01/06/24 01/06/24 Range/Units 05:25 05:25 05:25 WBC 5.8 (4.8-10.8) x10^3/uL RBC 2.76 L (4.20-5.40) 10^6/uL Hgb 8.6 L (12.0-16.0) g/dL Hct 27.1 L (37.0-47.0) % MCV 98.2 (81.0-99.0) fL MCH 31.2 H (27.0-31.0) pg MCHC 31.7 L (32.0-36.0) g/dL RDW 14.2 (12.0-15.0) % Plt Count 259 (130-450) 10^3/uL MPV 10.6 (7.9-10.8) fL Neut # (Auto) 3.3 (1.5-6.6) 10^3/uL Lymph # (Auto) 1.8 (1.5-3.5) 10^3/uL [place] # (Auto) 0.6 (0.0-1.0) 10^3/uL Eos # (Auto) 0.1 (0.0-0.7) 10^3/uL Baso # (Auto) 0.0 (0.0-0.1) 10^3/uL Absolute Nucleated RBC 0.00 x10^3/uL Nucleated RBC % 0.0 /100WBC PT 20.0 H (9.9-12.6) secs INR 1.9 H (0.8-1.2) Sodium 133 L (135-145) mmol/L Potassium 4.4 (3.5-4.5) mmol/L Chloride 112 H (101-111) mmol/L Carbon Dioxide 14 L (21-32) mmol/L Anion Gap 7.0 (6-13) BUN 30 H (6-20) mg/dL Creatinine 2.0 H (0.6-1.3) mg/dL Estimated GFR (MDRD) 24 L (>89) Glucose 95 (74-104) mg/dL Calcium 7.4 L (8.5-10.3) mg/dL Assessment/Plan - Problem List (1) Acute kidney injury Impression: Her GFR is at 24. Continue to monitor GFR. Continue Lactated Ringers at 1000 mls/hr. Avoid nephrotoxic medications. IV contrast not given for CT scan yesterday. Her baseline Creatinine is 1.5 (2) Atrial fibrillation Impression: She is currently on Wafarin 2.5 mg and her INR is controlled at 1.9. Continue warfarin 2.5 mg and hold if INR > 3. Continue Diltiazem 360 mg daily. Metoprolol started yesterday for rate control. (3) Gastroenteritis Impression: CT yesterday showed jejunal inflammation as well as some inflammation at the area of the rectum. Her abdominal pain is mildly diffuse and plan to continue 7 day course of Augmentin. <Candice Ulrich - Last Filed: 01/06/24 12:20> Subjective - Subjective Subjective: no rectal bleeding overnight. continues to tolerate a diet, but eating 25-50% of meals. Objective - Vital Signs/Intake & Output Vital Signs: Vital Signs x48h Temp Pulse Resp BP BP Pulse Ox 01/06/24 08:51 101/57 L 01/06/24 07:30 36.4 C L 69 18 104/56 L 95 Intake & Output: Intake & Output 01/03/24 01/04/24 01/05/24 01/06/24 23:59 23:59 23:59 23:59 Intake Total 3823.333 9564.451 1932 472 Output Total 200 Balance 3623.333 6197.918 0252 472 - Objective ENT: positive: ENT inspection nml Neck: positive: Nml inspection Rectal: positive: Hemorrhoid (visualized hemorrrhoids yesterday without active bleeding or thrombosis.) Extremities: positive: No pedal edema Neurologic/Psychiatric: positive: Oriented x3 - Lab Results Fish Bones: 01/06/24 05:25 01/06/24 05:25 Other Labs: Lab Results x24hrs 01/06/24 01/06/24 01/06/24 Range/Units 05:25 05:25 05:25 WBC 5.8 (4.8-10.8) x10^3/uL RBC 2.76 L (4.20-5.40) 10^6/uL Hgb 8.6 L (12.0-16.0) g/dL Hct 27.1 L (37.0-47.0) % MCV 98.2 (81.0-99.0) fL MCH 31.2 H (27.0-31.0) pg MCHC 31.7 L (32.0-36.0) g/dL RDW 14.2 (12.0-15.0) % Plt Count 259 (130-450) 10^3/uL MPV 10.6 (7.9-10.8) fL Neut # (Auto) 3.3 (1.5-6.6) 10^3/uL Lymph # (Auto) 1.8 (1.5-3.5) 10^3/uL [place] # (Auto) 0.6 (0.0-1.0) 10^3/uL Eos # (Auto) 0.1 (0.0-0.7) 10^3/uL Baso # (Auto) 0.0 (0.0-0.1) 10^3/uL Absolute Nucleated RBC 0.00 x10^3/uL Nucleated RBC % 0.0 /100WBC PT 20.0 H (9.9-12.6) secs INR 1.9 H (0.8-1.2) Sodium 133 L (135-145) mmol/L Potassium 4.4 (3.5-4.5) mmol/L Chloride 112 H (101-111) mmol/L Carbon Dioxide 14 L (21-32) mmol/L Anion Gap 7.0 (6-13) BUN 30 H (6-20) mg/dL Creatinine 2.0 H (0.6-1.3) mg/dL Estimated GFR (MDRD) 24 L (>89) Glucose 95 (74-104) mg/dL Calcium 7.4 L (8.5-10.3) mg/dL Assessment/Plan - Problem List (2) Acute kidney injury Impression: BMP is ordered for the AM. Cr 2.0 this AM. baseline Cr 1.3. She is on LR at 100cc/hr. Held IV contrast for CT yesterday (3) Hypokalemia due to excessive gastrointestinal loss of potassium Impression: resolved. K is 4.4 today. I will follow BMP (4) Dehydration Impression: improving on supportive fluids. (5) Gastroenteritis Impression: She does not have an exacerbating and remitting course of gastrointestinal discomfort throughout her lifetime. She does not have a family history of IBD. I briefly discussed the patient with general surgery, and there is no recommendation for further treatment beyond supportive care and augmentin. (7) Atrial fibrillation Impression: added metoprolol for rate controL. I am going to decrease this to 12.5mg. SBP has been in the 100's to 110's on this but her heart rate has come down well below 120. Warfarin managment as above. She is on home dose diltiazem. (8) Hyperlipidemia Impression: on home statin.
[2024-01-06] MEDS: FERROUS SULFATE 325 MG TABLET PO SCH (09:03)
[2024-01-06] MEDS: METOPROLOL TARTRATE 25 MG TABLET PO SCH (20:04)
[2024-01-07 05:50] LABS: BASOPHILS # (AUTO) 0.1 10^3/uL (0.0-0.1); BASOPHILS % (AUTO) 0.8 %; EOSINOPHILS # (AUTO) 0.1 10^3/uL (0.0-0.7); EOSINOPHILS % (AUTO) 1.9 %; HCT - HEMATOCRIT 27.1 % (37.0-47.0); HGB - HEMOGLOBIN 8.7 g/dL (12.0-16.0); LYMPHOCYTES # (AUTO) 1.9 10^3/uL (1.5-3.5); LYMPHOCYTES % (AUTO) 31.3 %; MEAN CORPUSCULAR HEMOGLOBIN 31.5 pg (27.0-31.0); MEAN CORPUSCULAR HGB CONC 32.1 g/dL (32.0-36.0); MEAN CORPUSCULAR VOLUME 98.2 fL (81.0-99.0); MEAN PLATELET VOLUME 10.8 fL (7.9-10.8); MONOCYTES # (AUTO) 0.7 10^3/uL (0.0-1.0); MONOCYTES % (AUTO) 12.1 %; NEUTROPHILS # (AUTO) 3.2 10^3/uL (1.5-6.6); NEUTROPHILS % (AUTO) 53.4 %; PLT - PLATELET COUNT 266 10^3/uL (130-450); RED BLOOD COUNT 2.76 10^6/uL (4.20-5.40); RED CELL DISTRIBUTION WIDTH 14.4 % (12.0-15.0); WHITE BLOOD COUNT 5.9 x10^3/uL (4.8-10.8)
[2024-01-07 05:52] LABS: INR 2.3 (0.8-1.2); PT - PROTHROMBIN TIME 23.5 secs (9.9-12.6)
[2024-01-07 06:14] LABS: CALCIUM 7.6 mg/dL (8.5-10.3); CREATININE 1.7 mg/dL (0.6-1.3); POTASSIUM 4.2 mmol/L (3.5-4.5)
[2024-01-07 06:23] LABS: % IRON SATURATION 11 % (20-50); IRON 20 ug/dL (50-212); TOTAL IRON BINDING CAPACITY 175 ug/dL (250-450); TRANSFERRIN 125 mg/dL (203-362)
--- NOTE | 2024-01-07 07:30 | DISCHARGE SUMMARY ---
Discharge Summary Admit Date: 01/02/24 Discharge Date: 01/07/24 Condition at Discharge: Stable Discharge Disposition: 01 Home, Self Care - DIAGNOSES Admission Diagnoses: (1) Enteritis (2) Acute kidney injury (3) Atrial fibrillation (4) Dehydration (5) Anemia Discharge Diagnoses with Status of Each Condition: (1) Enteritis - jejunal inflammation seen on CT. Stool cultures collected on hospital day 2. negative: final result. Appropriate to treat with antibiotics, discussed with pharmacy- best to treat with Augmentin given patient age. Discussed briefly with General Surgery. CT showed rectal wall inflammation. Pt to follow up with GI. Pt has hx of hemorrhoids. (2) Acute kidney injury - Resolved creatinine at baseline at 1.7. Patient is feeling better. (3) Atrial fibrillation - telemetry strips reviewed. She has been in atrial fibrillation, rate has increased and had readings around 120 indicating RVR on hopsital day 3. Her INR 2.4 that same day. she was given Vit K the day prior. Her INR has been labile in the outpatient environment. Home dose of diltiazem increased to 360 IR mg daily. Stopping Metoprolol today and if she needs it we will continue in the future. INR 2.3 on the date of discharge. Recheck INR on Thursday. (4) Dehydration Fluids given at 100 mL/hr. Sodium at 136 and potassium at 4.2. Ensure patient stays hydrated at home with lots of fluids. (5) Anemia Iron studies ordered yesterday. Patient to take Iron PO 3 time weekly on MWF. Patient should take with orange juice or acidic drinks. - HPI History of Present Illness: From H&P: "88-year-old female with a 5-day history of "food poisoning". About 5 days ago she wanted to take some Tylenol and therefore had a snack eating some leftover food. She states within the hour she started vomiting and has been having nausea and vomiting and diarrhea ever since that time. She has tolerated small bits of food since that time she has been able to tolerate clears most of the time. She has been having several loose stools a day and is gotten to the point where her stools are just greenish-yellowish water. She denies any foul- smelling stools she denies any blood in her stool or her vomit she has not had any black stools. She states there is not a particularly foul smell to her stool. In speaking with her tsajggto-zl-iis it seems that she has had recurrent illnesses of this sort that have been ongoing. She has not had any antibiotics in the last several months. She has not had any urinary tract infections. She has not been running any fevers. She does complain of some lower abdominal bloating this week. Brief discussion of CODE STATUS with patient shows that she desires DNR status. Her son, Wilder [place] is her surrogate decision maker." - CONSULTS | PROCEDURES Procedures: RUQ Abdominal Ultrasound: 1. Cyst of the head of pancreas measuring 0.8 cm. Similar to prior CT 2. Heterogeneous appearance of the liver. This could be due to hepatic steatosis or hepatocellular disease. CT Abdomen: Bilateral mild pleural effusions and bibasilar atelectasis. Thickening of multiple loops of jejunum consistent with jejunitis. - HOSPITAL COURSE Hospital Course: From HPI: Pt was admitted for "5-day history of "food poisoning". About 5 days ago she wanted to take some Tylenol and therefore had a snack eating some leftover food. She states within the hour she started vomiting and has been having nausea and vomiting and diarrhea ever since that time. She has tolerated small bits of food since that time she has been able to tolerate clears most of the time. She has been having several loose stools a day and is gotten to the point where her stools are just greenish-yellowish water." She was given normal saline at 100 mL/hr. She was given loperamide as needed for loose stools. Zofran for vomiting. She has been in atrial fibrillation, her diltiazem was increased 60 mg every 6 hours. Her Coumadin was withheld when INR was 3.8 and Vitamin K was given she was continued on Coumadin when INR < 3. She has had some rectal bleeding due to hemorrhoids and an RUQ ultrasound was completed. RUQ Abdominal Ultrasound showed cyst of the head of pancreas measuring 0.8 cm. Similar to prior CT. It also showed heterogeneous appearance of the liver. This could be due to hepatic steatosis or hepatocellular disease. CT Abdomen showed bilateral mild pleural effusions and bibasilar atelectasis. Thickening of multiple loops of jejunum consistent with jejunitis. After repletion she has improved and is without n/v and diarrhea. She is still pallor and mildly anemic. Iron studies were ordered and she was satrted on a course of iron. POLST filled out for DNR with selective treatment. This is in line with patient's goals of care. Was discussed briefly at the bedside with patient's ootchjwe-hv-skt Tereza who comes to visit during this discussion. - ALLERGIES Allergies/Adverse Reactions: Allergies Allergy/AdvReac Type Severity Reaction Status Date / Time No Known Drug Allergies Allergy Verified 01/02/24 13:01 - MEDICATIONS Home Medications: Ambulatory Orders Medication Instructions Recorded Confirmed Atorvastatin [Lipitor] 10 mg PO QPM 01/02/24 01/03/24 Losartan [Cozaar] 50 mg PO DAILY 01/02/24 01/02/24 Warfarin [Coumadin] 2.5 mg PO MOTUTHFRSA 01/02/24 01/03/24 dilTIAZem HCL [Diltiazem 24Hr ER] 360 mg PO DAILY 01/02/24 01/02/24 terbinafine HCL [Terbinafine HCl] 250 mg PO DAILY PRN 01/02/24 01/02/24 Warfarin [Coumadin] 5 mg PO SUWE 01/03/24 01/03/24 - PHYSICAL EXAM AT DISCHARGE General Appearance: positive: No acute distress, Alert Eyes Bilateral: positive: Normal inspection Respiratory: positive: Breath sounds nml Cardiovascular: positive: Regular rate & rhythm Abdomen: positive: Tenderness (Mild diffuse tenderness) Skin: positive: Pallor - LABS Result Diagrams: 01/07/24 05:28 01/07/24 05:28 - DIAGNOSTIC IMAGING Diagnostic Imaging Results: Final report reviewed - FOLLOW UP Follow Up: - If symptoms worsen follow up PRN - Follow up with PCP - Check INR on Thursday01/10/2023.
[2024-01-07 09:24] VITALS: BP 123/58; O2SAT 96
--- NOTE | 2024-01-07 11:16 | Discharge Plan ---
Discharge Plan Problem Reviewed?: Yes Disposition: Home, Self Care Condition: Stable Prescriptions: Amox/Clav 500/125 [Augmentin 500/125] 1 tab PO BID 7 Days #14 tab Ferrous Sulfate [Feosol] 325 mg PO UD 90 Days #90 tab Loperamide [Imodium] 2 mg PO QID PRN #90 tab PRN Reason: Diarrhea Instruction Topics: Diarrhea, ED Gastroenteritis Non Infec Health Concerns: You were admitted with an upset stomach that was so severe it had caused your kidneys to malfunction. Also your INR was quite high.4.8 While you were here we got an ultrasound of your abdomen which did not show any problems. You also got a CAT scan of your abdomen which showed inflammation in your jejunum as well as in your rectum. For this reason I would like you to follow-up with gastroenterology. Dr. Yeboah can make this referral. Additionally we kept an eye on your heart while you were here. Your heart rate got a little bit high from the atrial fibrillation but we were able to bring this down with medication. I would like you to go home on the same heart medicine that you are on before, diltiazem 360 mg a day. With regards to your warfarin: For now I want you to alternate doses of 1.25 with 2.5 mg. Here is the plan for the next few days: : 1.25 mg Thursday 2.5mg Thursday 1.25mg Thursday 2.5mg Thursday- get INR checked at [facility]. if you do not hear from Dr Yeboah, take 1.25mg. for your diarrhea I will prescribe Imodium. Directions will be on the bottle. You are a little bit low on your iron levels. I am going to prescribe iron. I want you to take 325 mg 3 times a week on Mondays, Wednesdays and Fridays. It is best to take this medication with food. Acidic foods help with iron absorption an example of this would be taking your iron pill with some orange juice. Also while you are here we worked on your desires for end-of-life care. I want you to take your POLST home and hang it on your refrigerator. The details of this document are DO NOT RESUSCITATE with selective treatment. Plan of Treatment: Home health will visit you in the coming week. You will get a nursing assessment and a PT assessment No Smoking: If you smoke, Please STOP! Call for help. Follow-up with: Martha Yeboah MD [Primary Care Provider] - 1 Week
== END 2024-01-07 12:47 | disposition home or self-care (01) | DRG 392 ==
LOC: ED 12:45 → MS2 18:47 → OBSVTOIN 01-04 10:18
PROVIDERS: ADMIT Physician Assistant Medical; ATTEND Physician Assistant Medical
DX: K52.9 Noninfective gastroenteritis and colitis, unspecified (principal); N17.9 Acute kidney failure, unspecified; I48.91 Unspecified atrial fibrillation; Z79.01 Long term (current) use of anticoagulants; D64.9 Anemia, unspecified; E78.00 Pure hypercholesterolemia, unspecified; R79.1 Abnormal coagulation profile; E86.0 Dehydration; Z66 Do not resuscitate; Z92.21 Personal history of antineoplastic chemotherapy; K64.9 Unspecified hemorrhoids; I10 Essential (primary) hypertension; Z85.820 Personal history of malignant melanoma of skin; H91.93 Unspecified hearing loss, bilateral; R53.1 Weakness; R26.81 Unsteadiness on feet; E87.6 Hypokalemia; E78.5 Hyperlipidemia, unspecified
CPT/HCPCS: 36415; 74176; 76705; 80048; 80053; 81003; 82330; 83540; 83690; 84466; 85025; 85610; 85730; 87045; 87046; 87427; 96361; 96365; 96375; 97161; 97165; 99284; 99285; A9270; G0378; J3490; J7120; Q9963; 81001; 87086

== ENCOUNTER 2024-01-11 14:00 | Outpatient (CLI) | payer MEDICARE | END 2024-01-11 14:01 | disposition home or self-care (01) | LOC: LAB.N 14:00 | PROVIDERS: ATTEND Internal Medicine | DX: I48.91 Unspecified atrial fibrillation (principal) | CPT/HCPCS: 36416; 85610 ==

== ENCOUNTER 2024-01-21 09:53 | Outpatient (CLI) | payer MEDICARE | END 2024-01-21 09:54 | disposition home or self-care (01) | LOC: LAB.N 09:53 | PROVIDERS: ATTEND Internal Medicine | DX: I48.91 Unspecified atrial fibrillation (principal) | CPT/HCPCS: 36416; 85610 ==

== ENCOUNTER 2024-02-25 14:47 | Outpatient (CLI) | payer MEDICARE | END 2024-02-25 14:48 | disposition home or self-care (01) | LOC: LAB.N 14:47 | PROVIDERS: ATTEND Internal Medicine | DX: I48.91 Unspecified atrial fibrillation (principal) | CPT/HCPCS: 36416; 85610 ==

== ENCOUNTER 2024-03-07 15:01 | Outpatient (CLI) | payer MEDICARE | END 2024-03-07 15:02 | disposition home or self-care (01) | LOC: LAB.N 15:01 | PROVIDERS: ATTEND Internal Medicine | DX: I48.91 Unspecified atrial fibrillation (principal) | CPT/HCPCS: 36416; 85610 ==